=== PATIENT | male | born 1960 | race American Indian/Alaskan Native ===

== ENCOUNTER 2018-05-11 18:17 | Inpatient (IN) | payer MEDICAID, MEDICARE ==
[2018-05-11] MEDS ORDERED: ASPIRIN PO ONE (18:27)
[2018-05-11 20:18] LABS: Basophils # (Auto) 0.1 K/mm3 (0.0-0.1); Eosinophils # (Auto) 0.4 K/mm3 (0.0-0.4); Eosinophils % (Auto) 6.6 % (0.0-4.3); Hematocrit 42.9 % (35.5-45.6); Hemoglobin 14.6 gm/dl (11.8-15.2); Lymphocytes # (Auto) 0.9 K/mm3 (1.2-5.4); Lymphocytes % (Auto) 15.9 % (13.4-35.0); Mean Corpuscular HGB Conc 34 % (32-34); Mean Corpuscular Hemoglobin 34 pg (28-32); Mean Corpuscular Volume 100 fl (84-94); Monocytes # (Auto) 0.5 K/mm3 (0.0-0.8); Monocytes % (Auto) 9.1 % (0.0-7.3); Platelet Count 143 K/mm3 (140-440); Red Blood Count 4.28 M/mm3 (3.65-5.03)
[2018-05-11 20:28] LABS: BUN/Creatinine Ratio 10; Blood Urea Nitrogen 6 mg/dL (9-20); Calcium 9.2 mg/dL (8.4-10.2); Hemolysis Index 69
[2018-05-12] MEDS ORDERED: MORPHINE IV ONE (04:08)
[2018-05-12] MEDS ORDERED: DELTASONE PO ONE (04:08)
[2018-05-12] MEDS ORDERED: ZOFRAN IV ONE (04:08)
[2018-05-12] MEDS ORDERED: NACL 0.9% 1000 ML 1,000 ML IV ONE (04:08)
[2018-05-12] MEDS ORDERED: DUONEB *Not for PRN Use IH ONE (04:08)
[2018-05-12] MEDS ORDERED: LEVAQUIN PO ONE (04:10)
[2018-05-12] MEDS ORDERED: BABY ASPIRIN PO ONE (04:11)
--- NOTE | 2018-05-12 04:11 | Emergency Department Report ---
HPI - General Chief Complaint: Chest Pain Time Seen by Provider: 05/12/18 03:52 - HPI HPI: The patient is a 57-year-old gentleman with a history of sarcoidosis, who presents for evaluation of chest pain and dyspnea. The patient reports chest pain and shortness of breath for the past 12 hours. He states that his chest pain is bilateral, sharp in quality, exacerbated with deep breaths, currently 6/ 10 in severity. ED Past Medical Hx - Past Medical History Additional medical history: scarcodosis - Surgical History Additional Surgical History: left shoulder - Social History Smoking Status: Current Every Day Smoker Substance Use Type: Alcohol - Medications Home Medications: Home Medications Medication Instructions Recorded Confirmed Last Taken Type Budesonide/Formoterol Fumarate 1 puff PO DAILY 05/11/18 05/11/18 Unknown History [Symbicort 160-4.5 Mcg Inhaler] ED Review of Systems ROS: Stated complaint: CHEST PAINS Other details as noted in HPI Constitutional: denies: fever ENT: denies: throat or neck pain Respiratory: denies: cough reports shortness of breath Cardiovascular: reports: chest pain Endocrine: denies unexplained weight loss or gain Gastrointestinal: denies: abdominal pain, nausea Genitourinary: denies: dysuria Musculoskeletal: denies: leg swelling Skin: denies: rash Neurological: denies: headache Hematological/Lymphatic: denies: easy bleeding or easy bruising Psych: denies sadness or hopelessness Physical Exam - Physical Exam Vital Signs: Vital Signs 05/11/18 05/11/18 18:27 23:40 Temperature 98.9 F 99.0 F Pulse Rate 101 H 71 Respiratory 18 20 Rate Blood Pressure 153/75 Blood Pressure 170/90 [Left] O2 Sat by Pulse 97 99 Oximetry Physical Exam: General: well-nourished, well-developed, no acute distress Head: Normocephalic, atraumatic Eyes: normal sclera ENT: Mucous membranes are pink and moist Neck: trachea midline, neck supple, No neck stiffness, no cervical adenopathy Respiratory: Mildly diminished breath sounds and wheezing present throughout lung guerrero bilaterally Cardio: S1 and S2 present, no murmurs, rubs, gallops, capillary refill is brisk Abdomen: Normoactive bowel sounds, soft abdomen, no rigidity, no guarding or rebound tenderness Chest WALL/Back: No tenderness to palpation of the chest wall, no CVA tenderness with percussion Musc: No pitting edema Skin: No rash Neuro: no facial drooping, normal speech Psych: Normal affect ED Course Vital Signs 05/11/18 05/11/18 18:27 23:40 Temperature 98.9 F 99.0 F Pulse Rate 101 H 71 Respiratory 18 20 Rate Blood Pressure 153/75 Blood Pressure 170/90 [Left] O2 Sat by Pulse 97 99 Oximetry ED Medical Decision Making - Lab Data Result diagrams: 05/11/18 19:50 05/11/18 19:50 - Medical Decision Making The patient was seen and examined by myself. The patient is placed on a library monitor and continuous pulse ox. On initial evaluation, the patient was found to be in no distress. EKG was negative for findings suggestive of acute cardiac infarct. Labs and imaging are obtained. Chest x-rays of his bilateral infiltrates. The patient is given IV Levaquin for treatment of his suspected pneumonia. Lab results were non-concerning including levels of troponin, WBC, hemoglobin, hematocrit, electrolytes, renal function. The on-call hospitalist service was contacted. They agreed to admit the patient for further treatment and close monitoring. The ED admit order was placed. The patient was admitted in guarded condition. Critical care attestation.: If time is entered above; I have spent that time in minutes in the direct care of this critically ill patient, excluding procedure time. ED Disposition Clinical Impression: Acute chest pain Pneumonia Qualifiers: Pneumonia type: due to unspecified organism Laterality: bilateral Lung location : upper lobe of lung Qualified Code(s): J18.1 - Lobar pneumonia, unspecified organism Disposition: OP ADMIT IP TO THIS HOSP Is pt being admited?: Yes Does the pt Need Aspirin: Yes Condition: Stable Instructions: Chest Pain (ED), Bacterial Pneumonia (ED) Referrals: PRIMARY CARE, [Primary Care Provider] - 3-5 Days Time of Disposition: 04:09
--- NOTE | 2018-05-12 04:26 | XRay Report ---
FINAL REPORT EXAM: XR CHEST 1V AP HISTORY: chest pain TECHNIQUE: AP portable view(s) of the chest obtained. PRIORS: None. FINDINGS: No mediastinal shift. Cardiac silhouette is not enlarged. No area pattern of punctate nodularity throughout both lungs. More confluent patchy opacities are present in a perihilar distribution. Hyperaeration of the lungs. No pneumothorax, effusion, or focal pulmonary opacity identified. No acute skeletal findings. Left shoulder hardware and severe right shoulder osteoarthrosis. IMPRESSION: Patchy perihilar opacities may be due to infection. Correlation with any prior imaging is requested. Miliary pattern of punctate nodularity throughout both lungs may be chronic sequela of tuberculosis, varicella or fungal disease.
[2018-05-12] MEDS ORDERED: NACL 0.9% 1000 ML 1,000 ML ONE (05:02)
[2018-05-12] MEDS ORDERED: TYLENOL PO PRN (12:03)
[2018-05-12] MEDS ORDERED: SODIUM CHLORIDE FLUSH SYRINGE 10 ML IV PRN (12:03)
[2018-05-12] MEDS ORDERED: PERCOCET 5/325 PO PRN (12:03)
[2018-05-12 13:20] LABS: BUN/Creatinine Ratio 13; Blood Urea Nitrogen 8 mg/dL (9-20); Calcium 9.1 mg/dL (8.4-10.2); Hemolysis Index 7
[2018-05-12] MEDS: BROVANA NEBU IH SCH (20:09)
[2018-05-12] MEDS: PULMICORT IH SCH (20:09)
[2018-05-12] MEDS: SODIUM CHLORIDE FLUSH SYRINGE 10 ML IV SCH (22:21)
[2018-05-13 06:22] LABS: BUN/Creatinine Ratio 12; Blood Urea Nitrogen 7 mg/dL (9-20); Calcium 8.9 mg/dL (8.4-10.2); Hemolysis Index 6
[2018-05-13] MEDS: PULMICORT IH SCH ×2 (08:24→19:55)
[2018-05-13] MEDS: BROVANA NEBU IH SCH ×2 (08:25→19:55)
[2018-05-13] MEDS ORDERED: NON-FORMULARY (Budesonide/Formoterol Fumarate [Symbicort 160-4.5 Mcg Inhaler] 1 PUFF) PO SCH (10:00)
[2018-05-13] MEDS ORDERED: LEXISCAN IV ONE ×2 (11:45→11:48)
[2018-05-13] MEDS: LOVENOX SUB-Q SCH (13:00)
[2018-05-13] MEDS: SODIUM CHLORIDE FLUSH SYRINGE 10 ML IV SCH ×2 (13:53→21:23)
[2018-05-13] MEDS: ZOFRAN IV PRN (14:20)
--- NOTE | 2018-05-13 20:35 | XRay Report ---
FINAL REPORT EXAM: XR ABDOMEN 1V AP HISTORY: abdo pain and vomiting TECHNIQUE: Supine AP view of the abdomen. PRIORS: None. FINDINGS: The bowel gas pattern appears normal. There are diffuse prominent reticular nodular opacities in the bilateral visualized lung guerrero. Orthopedic screws are seen in the left acetabular area. Otherwise, the bones are unremarkable. IMPRESSION: Normal bowel gas pattern. Diffuse prominent reticulonodular opacities in the bilateral lung guerrero most likely represent pneumonia. See report for the chest x-ray performed on the same day.
[2018-05-13] MEDS: NACL 0.9% 1000 ML 1,000 ML IV SCH (21:23)
--- NOTE | 2018-05-13 23:40 | Progress Note ---
Assessment and Plan Assessment and plan: 57M with pmh of sarcoidosis, COPD, who pw CP on exertion x 1 day chest pain due to esophageal irritation from vomiting acs ruled out, serial trop neg stress test neg Sarcoidosis/copd follows at [facility] denies SOB or wheezing PNA started abx Tobacco abuse nicotine patch prn N/V now worse KUB negative GI consult History Interval history: co vomiting, unable to keep anything down, not even water -denies cp, wheezing or sob -cp is resolved -has had some productive cough, thick sputum Hospitalist Physical - Constitutional Vitals: Temp Pulse Resp BP Pulse Ox 98.7 F 71 20 120/62 98 05/13/18 19:43 05/13/18 20:05 05/13/18 20:05 05/13/18 19:43 05/13/18 19:43 General appearance: Present: no acute distress - EENT Eyes: Present: PERRL ENT: hearing intact - Neck Neck: Present: supple - Respiratory Respiratory effort: normal Respiratory: bilateral: rales (bases) - Cardiovascular Rhythm: regular Heart Sounds: Present: S1 & S2 - Extremities Extremities: no ischemia Peripheral Pulses: within normal limits - Abdominal General gastrointestinal: soft, non-tender - Integumentary Integumentary: Present: clear, warm - Psychiatric Psychiatric: appropriate mood/affect - Neurologic Neurologic: CNII-XII intact Results - Labs CBC & Chem 7: 05/11/18 19:50 05/13/18 05:02 Labs: Laboratory Last Values WBC 5.8 K/mm3 (4.5-11.0) 05/11/18 19:50 RBC 4.28 M/mm3 (3.65-5.03) 05/11/18 19:50 Hgb 14.6 gm/dl (11.8-15.2) 05/11/18 19:50 Hct 42.9 % (35.5-45.6) 05/11/18 19:50 MCV 100 fl (84-94) H 05/11/18 19:50 MCH 34 pg (28-32) H 05/11/18 19:50 MCHC 34 % (32-34) 05/11/18 19:50 RDW 15.0 % (13.2-15.2) 05/11/18 19:50 Plt Count 143 K/mm3 (140-440) 05/11/18 19:50 Lymph % (Auto) 15.9 % (13.4-35.0) 05/11/18 19:50 [place] % (Auto) 9.1 % (0.0-7.3) H 05/11/18 19:50 Eos % (Auto) 6.6 % (0.0-4.3) H 05/11/18 19:50 Baso % (Auto) 1.0 % (0.0-1.8) 05/11/18 19:50 Lymph # 0.9 K/mm3 (1.2-5.4) L 05/11/18 19:50 [place] # 0.5 K/mm3 (0.0-0.8) 05/11/18 19:50 Eos # 0.4 K/mm3 (0.0-0.4) 05/11/18 19:50 Baso # 0.1 K/mm3 (0.0-0.1) 05/11/18 19:50 Seg Neutrophils % 67.4 % (40.0-70.0) 05/11/18 19:50 Seg Neutrophils # 3.9 K/mm3 (1.8-7.7) 05/11/18 19:50 Sodium 132 mmol/L (137-145) L 05/13/18 05:02 Potassium 3.5 mmol/L (3.6-5.0) L D 05/13/18 05:02 Chloride 94.4 mmol/L (98-107) L 05/13/18 05:02 Carbon Dioxide 26 mmol/L (22-30) 05/13/18 05:02 Anion Gap 15 mmol/L 05/13/18 05:02 BUN 7 mg/dL (9-20) L 05/13/18 05:02 Creatinine 0.6 mg/dL (0.8-1.5) L 05/13/18 05:02 Estimated GFR > 60 ml/min 05/13/18 05:02 BUN/Creatinine Ratio 12 % 05/13/18 05:02 Glucose 103 mg/dL (75-100) H 05/13/18 05:02 Calcium 8.9 mg/dL (8.4-10.2) 05/13/18 05:02 Troponin T < 0.010 ng/mL (0.00-0.029) 05/12/18 00:55 NT-Pro-B Natriuret Pep 33.22 pg/mL (0-900) 05/12/18 00:55
--- NOTE | 2018-05-13 23:40 | History and Physical Report ---
History of Present Illness Date of admission: 05/13/18 14:45 Chief complaint: chest pain History of present illness: 57M c/o cp x1 day, CP began after he walked up the stairs, and since then he continues to have CP on exertion -cp in substernal, dull, feels tight, /10, no radiation, exacerbated by activity -admits to having vomiting even after he drank water -had multiple emesis, non bloody -no cough, has thick sputum production at baseline PMH; sarcoid, copd, PSh; left UE surgery Family Hx; father of [place] in his late 40s, Social hx; admits to current cigarette and cigar use, has been cutting back -his pcp gave him chantix -has hx of etoh and illicit drug abuse from many years ago. denies current use Medications and Allergies Allergies Allergy/AdvReac Type Severity Reaction Status Date / Time lactose AdvReac Unknown Verified 05/13/18 12:39 Home Medications Medication Instructions Recorded Confirmed Last Taken Type Budesonide/Formoterol Fumarate 1 puff PO DAILY 05/11/18 05/11/18 Unknown History [Symbicort 160-4.5 Mcg Inhaler] Active Meds: Active Medications Acetaminophen (Tylenol) 650 mg PO Q4H PRN PRN Reason: Pain MILD(1-3)/Fever >100.5/MILLER Arformoterol Tartrate (Brovana Nebu) 15 mcg IH Q12HRT [facility] Last Admin: 05/13/18 19:55 Dose: 15 mcg Budesonide (Pulmicort) 1 mg IH Q12HRT [facility] Last Admin: 05/13/18 19:55 Dose: 1 mg Enoxaparin Sodium (Lovenox) 40 mg SUB-Q QDAY [facility] Last Admin: 05/13/18 13:00 Dose: 40 mg Sodium Chloride (Nacl 0.9% 1000 Ml) 1,000 mls @ 125 mls/hr IV DIRECT [facility] Stop: 05/15/18 18:57 Last Admin: 05/13/18 21:23 Dose: 125 mls/hr Ondansetron HCl (Zofran) 4 mg IV Q8H PRN PRN Reason: Nausea And Vomiting Last Admin: 05/13/18 14:20 Dose: 4 mg Oxycodone/Acetaminophen (Percocet 5/325) 1 tab PO Q6H PRN PRN Reason: Pain, Moderate (4-6) Sodium Chloride (Sodium Chloride Flush Syringe 10 Ml) 10 ml IV BID [facility] Last Admin: 05/13/18 21:23 Dose: 10 ml Sodium Chloride (Sodium Chloride Flush Syringe 10 Ml) 10 ml IV PRN PRN PRN Reason: LINE FLUSH Review of Systems All systems: negative (10 point ROS is otherwise negative) Constitutional: no weight loss, no fever Ears, nose, mouth and throat: no ear pain Cardiovascular: chest pain Respiratory: no cough Gastrointestinal: nausea, vomiting Rectal: no pain Musculoskeletal: no neck stiffness Integumentary: no rash Neurological: no head injury Psychiatric: no anxiety Endocrine: no cold intolerance Hematologic/Lymphatic: no easy bruising Allergic/Immunologic: no urticaria Exam - Constitutional Vitals: Temp Pulse Resp BP Pulse Ox 98.7 F 71 20 120/62 98 05/13/18 19:43 05/13/18 20:05 05/13/18 20:05 05/13/18 19:43 05/13/18 19:43 General appearance: Present: no acute distress, well-nourished - EENT Eyes: Present: PERRL ENT: hearing intact, clear oral mucosa - Neck Neck: Present: supple, normal ROM - Respiratory Respiratory effort: normal Respiratory: bilateral: CTA - Cardiovascular Heart Sounds: Present: S1 & S2. Absent: rub, click - Extremities Extremities: pulses symmetrical, No edema Peripheral Pulses: within normal limits - Abdominal General gastrointestinal: Present: soft, non-tender, non-distended, normal bowel sounds Male genitourinary: Present: normal - Integumentary Integumentary: Present: clear, warm, dry - Musculoskeletal Musculoskeletal: gait normal, strength equal bilaterally - Psychiatric Psychiatric: appropriate mood/affect, intact judgment & insight - Neurologic Neurologic: CNII-XII intact, moves all extremities Results - Labs CBC & Chem 7: 05/11/18 19:50 05/13/18 05:02 Labs: Laboratory Last Values WBC 5.8 K/mm3 (4.5-11.0) 05/11/18 19:50 RBC 4.28 M/mm3 (3.65-5.03) 05/11/18 19:50 Hgb 14.6 gm/dl (11.8-15.2) 05/11/18 19:50 Hct 42.9 % (35.5-45.6) 05/11/18 19:50 MCV 100 fl (84-94) H 05/11/18 19:50 MCH 34 pg (28-32) H 05/11/18 19:50 MCHC 34 % (32-34) 05/11/18 19:50 RDW 15.0 % (13.2-15.2) 05/11/18 19:50 Plt Count 143 K/mm3 (140-440) 05/11/18 19:50 Lymph % (Auto) 15.9 % (13.4-35.0) 05/11/18 19:50 [place] % (Auto) 9.1 % (0.0-7.3) H 05/11/18 19:50 Eos % (Auto) 6.6 % (0.0-4.3) H 05/11/18 19:50 Baso % (Auto) 1.0 % (0.0-1.8) 05/11/18 19:50 Lymph # 0.9 K/mm3 (1.2-5.4) L 05/11/18 19:50 [place] # 0.5 K/mm3 (0.0-0.8) 05/11/18 19:50 Eos # 0.4 K/mm3 (0.0-0.4) 05/11/18 19:50 Baso # 0.1 K/mm3 (0.0-0.1) 05/11/18 19:50 Seg Neutrophils % 67.4 % (40.0-70.0) 05/11/18 19:50 Seg Neutrophils # 3.9 K/mm3 (1.8-7.7) 05/11/18 19:50 Sodium 132 mmol/L (137-145) L 05/13/18 05:02 Potassium 3.5 mmol/L (3.6-5.0) L D 05/13/18 05:02 Chloride 94.4 mmol/L (98-107) L 05/13/18 05:02 Carbon Dioxide 26 mmol/L (22-30) 05/13/18 05:02 Anion Gap 15 mmol/L 05/13/18 05:02 BUN 7 mg/dL (9-20) L 05/13/18 05:02 Creatinine 0.6 mg/dL (0.8-1.5) L 05/13/18 05:02 Estimated GFR > 60 ml/min 05/13/18 05:02 BUN/Creatinine Ratio 12 % 05/13/18 05:02 Glucose 103 mg/dL (75-100) H 05/13/18 05:02 Calcium 8.9 mg/dL (8.4-10.2) 05/13/18 05:02 Troponin T < 0.010 ng/mL (0.00-0.029) 05/12/18 00:55 NT-Pro-B Natriuret Pep 33.22 pg/mL (0-900) 05/12/18 00:55 Assessment and Plan Assessment and plan: 57M with pmh of sarcoidosis, COPD, who pw CP on exertion x 1 day chest pain acs ruled out, serial trop neg obtain stress test Sarcoidosis/copd follows at [facility] denies SOB or wheezing Tobacco abuse nicotine patch prn N/V says nausea is resolving
--- NOTE | 2018-05-14 04:59 | Treadmill Report ---
THALLIUM STRESS TEST LEFT VENTRICLE: Left ventricular chamber size is within normal spread. Perfusion study demonstrates homogeneous uptake of tracer in all segments, no significant perfusion defects identified. Gated analysis demonstrates normal left ventricular systolic function, ejection fraction of 59%. CONCLUSION: Normal myocardial perfusion study. JOB# [id number] CA/NTS
[2018-05-14] MEDS: NACL 0.9% 1000 ML 1,000 ML IV SCH ×2 (06:14→17:16)
[2018-05-14] MEDS: ZOFRAN IV PRN (08:55)
[2018-05-14] MEDS: PULMICORT IH SCH ×2 (09:18→19:16)
[2018-05-14] MEDS: BROVANA NEBU IH SCH ×2 (09:18→19:16)
[2018-05-14] MEDS: LEVAQUIN 750MG/150ML 750 MG/150 ML BAG IV SCH (10:34)
[2018-05-14] MEDS: SODIUM CHLORIDE FLUSH SYRINGE 10 ML IV SCH ×2 (10:35→21:20)
[2018-05-14] MEDS: HABITROL TD SCH (10:35)
[2018-05-14] MEDS: LOVENOX SUB-Q SCH (10:35)
--- NOTE | 2018-05-14 12:23 | Gastroenterology Consultation ---
<ANA LUISA HADDAD - Last Filed: 05/14/18 12:52> History of Present Illness - Reason for Consult Consult date: 05/14/18 intractable vomiting Requesting physician: SANDIE RAMIREZ - History of Present Illness Patient is a 57 y/o male with PMH of sarcoidosis and COPD who presented to ED with c/p CP on exertion and dyspnea. Upon admission, chest x-ray showed bilateral infiltrates due to possible pneumonia to which patient is currently being treated with antibiotics. CP was evaluated with ACS ruled out (cardiac enzymes and stress test negative). GI has been consulted for intractable vomiting. This morning patient was resting in bed w/o acute distress and CP improved. He reports having intermittent episodes of vomiting after meals for the past few months with associated periumbilical abd pain that is described as non-radiating cramping. Symptoms are worse with eating certain foods like dairy products, which also produces loose stools when consumed. Abd pain is improved after vomiting or having a BM. Nursing reports patient has been coughing/ spitting up mucus but no vomiting this am and he was able to tolerate a regular diet for breakfast w/o difficulty. Admits to mild recent wt loss due to current symptoms of approximately 3-5 lbs. Denies fever, SOB, dizziness, dysphagia, odynophagia, signs of bleeding, constipation, or diarrhea. No NSAID use. No hx of PUD or previous EGD. Last colonoscopy 3 years ago that revealed polyps per patient report. Past History Past Medical History: COPD, sarcoidosis Past Surgical History: Other (left UE surgery) Social history: smoking, other (hx of etoh and illicit drug abuse from many years ago (no current use)) Family history: CAD (father of [place] in his late 40s) Medications and Allergies Allergies Allergy/AdvReac Type Severity Reaction Status Date / Time lactose AdvReac Unknown Verified 05/13/18 12:39 Home Medications Medication Instructions Recorded Confirmed Last Taken Type Budesonide/Formoterol Fumarate 1 puff PO DAILY 05/11/18 05/11/18 Unknown History [Symbicort 160-4.5 Mcg Inhaler] Active Meds: Active Medications Acetaminophen (Tylenol) 650 mg PO Q4H PRN PRN Reason: Pain MILD(1-3)/Fever >100.5/MILLER Arformoterol Tartrate (Brovana Nebu) 15 mcg IH Q12HRT [facility] Last Admin: 05/14/18 09:18 Dose: 15 mcg Budesonide (Pulmicort) 1 mg IH Q12HRT [facility] Last Admin: 05/14/18 09:18 Dose: 1 mg Enoxaparin Sodium (Lovenox) 40 mg SUB-Q QDAY [facility] Last Admin: 05/14/18 10:35 Dose: 40 mg Sodium Chloride (Nacl 0.9% 1000 Ml) 1,000 mls @ 125 mls/hr IV DIRECT [facility] Stop: 05/15/18 18:57 Last Admin: 05/14/18 06:14 Dose: 125 mls/hr Levofloxacin/Dextrose (Levaquin 750mg/150ml) 750 mg in 150 mls @ 100 mls/hr IV Q24HR [facility]; Protocol Last Admin: 05/14/18 10:34 Dose: 100 mls/hr Nicotine (Habitrol) 7 mg TD QDAY [facility] Last Admin: 05/14/18 10:35 Dose: 7 mg Ondansetron HCl (Zofran) 4 mg IV Q8H PRN PRN Reason: Nausea And Vomiting Last Admin: 05/14/18 08:55 Dose: 4 mg Oxycodone/Acetaminophen (Percocet 5/325) 1 tab PO Q6H PRN PRN Reason: Pain, Moderate (4-6) Sodium Chloride (Sodium Chloride Flush Syringe 10 Ml) 10 ml IV BID [facility] Last Admin: 05/14/18 10:35 Dose: 10 ml Sodium Chloride (Sodium Chloride Flush Syringe 10 Ml) 10 ml IV PRN PRN PRN Reason: LINE FLUSH Review of Systems - Review of Systems All systems: negative Gastrointestinal: abdominal pain, nausea, vomiting Exam - Constitutional Vital Signs: Temp Pulse Resp BP Pulse Ox 98.6 F 77 16 132/79 99 05/14/18 08:15 05/14/18 08:15 05/14/18 08:15 05/14/18 08:15 05/14/18 08:15 General appearance: no acute distress, other (thin appearing) - Respiratory Respiratory: bilateral: CTA (anterior) - Cardiovascular Rhythm: regular Heart Sounds: Present: S1 & S2 - Gastrointestinal General gastrointestinal: Present: soft, non-tender, non-distended, normal bowel sounds - Neurologic Neurological: alert and oriented x3 - Labs CBC & Chem 7: 05/11/18 19:50 05/13/18 05:02 Assessment and Plan 1.intractable vomiting w/ atypical CP 2.abdominal pain (periumbilical pain/cramping) -afebrile -WBC WNL -abdominal x-ray negative -patient reports periumbilical pain after eating for the past few months with associated intermittent vomiting and occasional loose stools only after consuming dairy products -etiology unclear- possibly functional vs other -clinically, patient is stable with CP improved but c/o abd pain/cramping and some mild continued nausea but no recent vomiting. Tolerated diet this am. -will check LFTs and lipase in am -recommend an abd CT for further evaluation to r/o any acute process -start on daily PPI -consider EGD based on progress -continue supportive care -further recommendations to follow 3.sarcoidosis/COPD 4.PNA <SEAMUS WRIGHT - Last Filed: 05/14/18 23:23> Medications and Allergies Active Meds: Active Medications Acetaminophen (Tylenol) 650 mg PO Q4H PRN PRN Reason: Pain MILD(1-3)/Fever >100.5/MILLER Arformoterol Tartrate (Brovana Nebu) 15 mcg IH Q12HRT [facility] Last Admin: 05/14/18 19:16 Dose: 15 mcg Budesonide (Pulmicort) 1 mg IH Q12HRT [facility] Last Admin: 05/14/18 19:16 Dose: 1 mg Enoxaparin Sodium (Lovenox) 40 mg SUB-Q QDAY [facility] Last Admin: 05/14/18 10:35 Dose: 40 mg Sodium Chloride (Nacl 0.9% 1000 Ml) 1,000 mls @ 125 mls/hr IV DIRECT [facility] Stop: 05/15/18 18:57 Last Admin: 05/14/18 17:16 Dose: 125 mls/hr Levofloxacin/Dextrose (Levaquin 750mg/150ml) 750 mg in 150 mls @ 100 mls/hr IV Q24HR [facility]; Protocol Last Admin: 05/14/18 10:34 Dose: 100 mls/hr Nicotine (Habitrol) 7 mg TD QDAY [facility] Last Admin: 05/14/18 10:35 Dose: 7 mg Ondansetron HCl (Zofran) 4 mg IV Q8H PRN PRN Reason: Nausea And Vomiting Last Admin: 05/14/18 08:55 Dose: 4 mg Oxycodone/Acetaminophen (Percocet 5/325) 1 tab PO Q6H PRN PRN Reason: Pain, Moderate (4-6) Pantoprazole Sodium (Protonix) 40 mg IV BID [facility] Last Admin: 05/14/18 21:19 Dose: 40 mg Sodium Chloride (Sodium Chloride Flush Syringe 10 Ml) 10 ml IV BID [facility] Last Admin: 05/14/18 21:20 Dose: 10 ml Sodium Chloride (Sodium Chloride Flush Syringe 10 Ml) 10 ml IV PRN PRN PRN Reason: LINE FLUSH Exam - Constitutional Vital Signs: Temp Pulse Resp BP Pulse Ox 97.1 F L 81 17 138/80 100 05/14/18 20:09 05/14/18 20:09 05/14/18 20:48 05/14/18 20:09 05/14/18 20:09 - Labs CBC & Chem 7: 05/11/18 19:50 05/13/18 05:02 Assessment and Plan Pt seen and examined. Agree with note above. Difficult to obtain clear timing and details of GI symptoms. Some symptoms are chronic vs possibly some recent new changes in bowel habits, although difficult to say. CT scan as above, and check liver enzymes, lipase. diet as tolerated. egd if n/v persists without other obvious explanation.
[2018-05-14] MEDS: PROTONIX IV SCH ×2 (14:37→21:19)
--- NOTE | 2018-05-14 16:08 | Progress Note ---
Assessment and Plan Assessment and plan: Patient is a 57 yo man with a history of sarcoidosis and COPD who pw CP, SOB. Chest pain due to esophageal irritation from vomiting acs ruled out, serial trop neg stress test neg Sarcoidosis/copd follows at [place] denies SOB or wheezing PNA. suspected aspiration type bilateral started abx Tobacco abuse nicotine patch prn Intractable N/V now worse KUB negative GI consulted, CT abd/pelvis pending Moderate malnutrition, bmi 17.6 consult Reading Teacher, and GI History Interval history: Patient was seen and examined. Follow-up on current diagnosis of cp, resolved but still with n/v. Overnight uneventful. Patient denies any chest pain, shortness breath or severe headaches. Imaging, nursing note, chart, labs and old chart reviewed. Discussed with patient. Hospitalist Physical - Physical exam Narrative exam: GEN: thin frail, bmi 17.6, NAD, Awake, Alert, Orientated x 3 HEENT: NCAT, EOMI, PERRL, OP Clear NECK: supple, no adenopathy, no thyromegaly, no JVD CVS/HEART: RRR, normal S1S2, pulses present bilaterally CHEST/LUNGS: CTA B, Symmetrical chest expansion, good air entry bilaterally GI/Abdomen: soft, NTND, good bowel sounds, no guarding or rebound /Bladder: no suprapubic tenderness, no CVA or paraspinal tenderness EXT/Skin: no c/c/e, no obvious rash MSK: FROM x 4 Neuro: CN 2-12 grossly intact, no new focal deficits Psych: calm - Constitutional Vitals: Temp Pulse Resp BP Pulse Ox 98.6 F 74 18 134/80 98 05/14/18 13:04 05/14/18 13:04 05/14/18 13:04 05/14/18 13:04 05/14/18 13:04 General appearance: Present: no acute distress Results - Labs CBC & Chem 7: 05/11/18 19:50 05/13/18 05:02 Labs: Laboratory Last Values WBC 5.8 K/mm3 (4.5-11.0) 05/11/18 19:50 RBC 4.28 M/mm3 (3.65-5.03) 05/11/18 19:50 Hgb 14.6 gm/dl (11.8-15.2) 05/11/18 19:50 Hct 42.9 % (35.5-45.6) 05/11/18 19:50 MCV 100 fl (84-94) H 05/11/18 19:50 MCH 34 pg (28-32) H 05/11/18 19:50 MCHC 34 % (32-34) 05/11/18 19:50 RDW 15.0 % (13.2-15.2) 05/11/18 19:50 Plt Count 143 K/mm3 (140-440) 05/11/18 19:50 Lymph % (Auto) 15.9 % (13.4-35.0) 05/11/18 19:50 [place] % (Auto) 9.1 % (0.0-7.3) H 05/11/18 19:50 Eos % (Auto) 6.6 % (0.0-4.3) H 05/11/18 19:50 Baso % (Auto) 1.0 % (0.0-1.8) 05/11/18 19:50 Lymph # 0.9 K/mm3 (1.2-5.4) L 05/11/18 19:50 [place] # 0.5 K/mm3 (0.0-0.8) 05/11/18 19:50 Eos # 0.4 K/mm3 (0.0-0.4) 05/11/18 19:50 Baso # 0.1 K/mm3 (0.0-0.1) 05/11/18 19:50 Seg Neutrophils % 67.4 % (40.0-70.0) 05/11/18 19:50 Seg Neutrophils # 3.9 K/mm3 (1.8-7.7) 05/11/18 19:50 Sodium 132 mmol/L (137-145) L 05/13/18 05:02 Potassium 3.5 mmol/L (3.6-5.0) L D 05/13/18 05:02 Chloride 94.4 mmol/L (98-107) L 05/13/18 05:02 Carbon Dioxide 26 mmol/L (22-30) 05/13/18 05:02 Anion Gap 15 mmol/L 05/13/18 05:02 BUN 7 mg/dL (9-20) L 05/13/18 05:02 Creatinine 0.6 mg/dL (0.8-1.5) L 05/13/18 05:02 Estimated GFR > 60 ml/min 05/13/18 05:02 BUN/Creatinine Ratio 12 % 05/13/18 05:02 Glucose 103 mg/dL (75-100) H 05/13/18 05:02 Calcium 8.9 mg/dL (8.4-10.2) 05/13/18 05:02 Troponin T < 0.010 ng/mL (0.00-0.029) 05/12/18 00:55 NT-Pro-B Natriuret Pep 33.22 pg/mL (0-900) 05/12/18 00:55
[2018-05-14] MEDS ORDERED: K-DUR PO ONE (17:00)
[2018-05-15 05:47] LABS: Basophils % (Auto) 0.6 % (0.0-1.8); Eosinophils # (Auto) 0.8 K/mm3 (0.0-0.4); Eosinophils % (Auto) 14.3 % (0.0-4.3); Hematocrit 34.3 % (35.5-45.6); Hemoglobin 11.6 gm/dl (11.8-15.2); Lymphocytes # (Auto) 0.9 K/mm3 (1.2-5.4); Lymphocytes % (Auto) 15.1 % (13.4-35.0); Mean Corpuscular HGB Conc 34 % (32-34); Mean Corpuscular Hemoglobin 34 pg (28-32); Mean Corpuscular Volume 101 fl (84-94); Monocytes # (Auto) 0.8 K/mm3 (0.0-0.8); Monocytes % (Auto) 13.6 % (0.0-7.3); Red Blood Count 3.39 M/mm3 (3.65-5.03); Red Cell Distribution Width 14.5 % (13.2-15.2)
[2018-05-15 05:50] LABS: Platelet Count 87 K/mm3 (140-440)
[2018-05-15 06:10] LABS: BUN/Creatinine Ratio 8; Blood Urea Nitrogen 5 mg/dL (9-20); Calcium 8.9 mg/dL (8.4-10.2); Hemolysis Index 4
[2018-05-15 06:24] LABS: Alanine Aminotransferase 13 units/L (7-56); Albumin 3.7 g/dL (3.9-5); BUN/Creatinine Ratio 8; Blood Urea Nitrogen 5 mg/dL (9-20); Hemolysis Index 1; Lipase 49 units/L (13-60)
[2018-05-15] MEDS: NACL 0.9% 1000 ML 1,000 ML IV SCH (07:33)
[2018-05-15] MEDS: PULMICORT IH SCH (07:49)
[2018-05-15] MEDS: BROVANA NEBU IH SCH (07:50)
[2018-05-15] MEDS ORDERED: NACL 0.9% 50 ML ONE (08:21)
--- NOTE | 2018-05-15 10:43 | Cat Scan Report ---
CT ABDOMEN PELVIS WITH CONTRAST: HISTORY: Abdominal pain, intractable vomiting. COMPARISON: none. TECHNIQUE: Helical CT in 1.25mm intervals following IV contrast. Sagittal and coronal reconstructions. FINDINGS: Lung bases: The trace bilateral pleural effusions. There are innumerable tiny nodules throughout the lung bases measuring 1-3 mm. Although this could be infectious in nature a metastatic process is not excluded. This resembles a miliary pattern. Liver: Normal. Biliary system: Normal. Pancreas: Normal. Spleen: Normal. Kidneys/ureters/bladder: Normal. Adrenal glands: Normal. Aorta: Normal. Intestines: No evidence for bowel obstruction or focal inflammation. No oral contrast was administered which limits full evaluation of the GI tract. Appendix: Normal. Pelvic viscera: Normal. Ascites: None. Adenopathy: None. Musculoskeletal: Scoliosis and lumbar spondylosis are noted. No fracture or suspicious bony lesion is identified. IMPRESSION: Numerous tiny nodules at the lung bases resembling a miliary pattern. This could represent metastatic disease or infectious etiology such as tuberculosis. Please correlate with the patient's history. Trace bilateral pleural effusions. No acute inflammatory process is identified in the abdomen or pelvis.
[2018-05-15] MEDS: LEVAQUIN 750MG/150ML 750 MG/150 ML BAG IV SCH (10:45)
[2018-05-15] MEDS: HABITROL TD SCH (10:45)
[2018-05-15] MEDS: LOVENOX SUB-Q SCH (10:46)
[2018-05-15] MEDS: PROTONIX IV SCH (10:46)
[2018-05-15 12:18] VITALS: BP 119/68
--- NOTE | 2018-05-15 14:10 | Gastroenterology Progress Note ---
Assessment and Plan 1.intractable vomiting/atypical CP 2.abdominal pain (periumbilical pain/cramping) -afebrile -WBC WNL -LFTs and lipase WNL -abdominal x-ray negative -CT showed numerous tiny nodules a the lung bases and trace bilateral pleural effusions but no acute inflammatory process in the abdomen or plevis -patient reports multiple vague intermittent GI complaints that have been mostly chronic vs possibly some recent new changes (difficult to obtain clear timing and details of GI symptoms) to include some periumbilical pain/cramping, N/V, and loose stools only after consuming dairy products -etiology unclear- possibly functional vs other -clinically, patient reports feeling better today with abd pain and N/V now resolved. No CP. Tolerating diet. -continue PPI and supportive care -patient okay to be d/c per GI standpoint with outpatient follow up in clinic -will sign off, please call if needed 3.sarcoidosis/COPD 4.PNA Subjective Date of service: 05/15/18 Principal diagnosis: intractable vomiting Interval history: Patient Objective - Constitutional Vitals: Temp Pulse Resp BP Pulse Ox 98.2 F 74 20 119/68 99 05/15/18 12:17 05/15/18 12:17 05/15/18 12:17 05/15/18 12:17 05/15/18 12:17 - Labs CBC & Chem 7: 05/15/18 05:09 05/15/18 05:09 Labs: Laboratory Results - last 24 hr 05/15/18 05/15/18 05/15/18 05:09 05:09 05:09 WBC 5.7 RBC 3.39 L Hgb 11.6 L Hct 34.3 L MCV 101 H MCH 34 H MCHC 34 RDW 14.5 Plt Count 87 L Lymph % (Auto) 15.1 [place] % (Auto) 13.6 H Eos % (Auto) 14.3 H Baso % (Auto) 0.6 Lymph # 0.9 L [place] # 0.8 Eos # 0.8 H Baso # 0.0 Seg Neutrophils % 56.4 Seg Neutrophils # 3.2 Sodium 140 D 137 Potassium 4.3 D 4.1 Chloride 106.3 103.3 Carbon Dioxide 25 24 Anion Gap 13 14 BUN 5 L 5 L Creatinine 0.6 L 0.6 L Estimated GFR > 60 > 60 BUN/Creatinine Ratio 8 8 Glucose 91 89 Calcium 9.0 8.9 Magnesium 1.90 Total Bilirubin 1.20 AST 21 ALT 13 Alkaline Phosphatase 68 Total Protein 7.1 Albumin 3.7 L Albumin/Globulin Ratio 1.1 Lipase 49
--- NOTE | 2018-05-15 14:18 | Discharge Summary ---
Providers - Providers Date of Admission: 05/13/18 14:45 Date of discharge: 05/15/18 Attending physician: MARIA DOLORES BENSON 05/13/18 16:40 Consult to Physician [CONS] Routine Comment: Consulting Provider: TALI CLEARY Physician Instructions: Reason For Exam: intractable vomiting 05/15/18 09:21 Consult to Dietitian/Nutrition [CONS] Routine Physician Instructions: Reason For Exam: Reason for Consult: Malnutrition Primary care physician: PROOFER BLACK AND WHITE Hospitalization Condition: Stable Hospital course: Patient is a 57 yo man with a history of sarcoidosis and COPD who pw CP, SOB. Chest pain due to GERD acs ruled out, serial trop neg stress test neg Sarcoidosis/copd follows at [facility], ct showing milliary patten, chronic which could be Tb, no comparison imaging, first visit here, d/w Dr. Velazquez briefly about the finding but not the patient. He recommends outpatient followup denies SOB or wheezing PNA. suspected aspiration type bilateral started abx Tobacco abuse nicotine patch prn Intractable N/V now worse KUB negative GI consulted, CT abd/pelvis pending Moderate malnutrition, bmi 17.6 consult Police Superintendent, and GI Disposition: DC-01 TO HOME OR SELFCARE Time spent for discharge: 31 min Core Measure Documentation - Palliative Care Palliative Care/ Comfort Measures: Not Applicable - Core Measures Any of the following diagnoses?: none - VTE Discharge Requirements Deep Vein Thrombosis/Pulmonary Embolism Present on Admission: No Has pt received <5 days of overlap therapy or INR<2.0: No Anticoagulant overlap therapy prescribed at discharge: No Contraindication No Overlap Therapy order at DC: Not Indicated Exam - Physical Exam Narrative exam: GEN: thin frail, bmi 17.6, NAD, Awake, Alert, Orientated x 3 HEENT: NCAT, EOMI, PERRL, OP Clear NECK: supple, no adenopathy, no thyromegaly, no JVD CVS/HEART: RRR, normal S1S2, pulses present bilaterally CHEST/LUNGS: CTA B, Symmetrical chest expansion, good air entry bilaterally GI/Abdomen: soft, NTND, good bowel sounds, no guarding or rebound /Bladder: no suprapubic tenderness, no CVA or paraspinal tenderness EXT/Skin: no c/c/e, no obvious rash MSK: FROM x 4 Neuro: CN 2-12 grossly intact, no new focal deficits Psych: calm - Constitutional Vitals: Temp Pulse Resp BP Pulse Ox 98.2 F 74 20 119/68 99 05/15/18 12:17 05/15/18 12:17 05/15/18 12:17 05/15/18 12:17 05/15/18 12:17 Plan Activity: other (no strenous activity until cleared pcp) Diet: advance as tolerated Special Instructions: smoking cessation Follow up with: AAKASH CHIANG MD [Staff Physician] - 7 Days PAUL WHITFIELD [Staff Physician] - 7 Days Prescriptions: ALBUTEROL Inhaler(NF) [VENTOLIN Inhaler(NF)] 2 puff IH Q4H PRN #1 unit PRN Reason: Shortness Of Breath Budesonide/Formoterol Fumarate [Symbicort 160-4.5 Mcg Inhaler] 1 puff PO DAILY # 1 hfa.aer.ad levoFLOXacin [Levaquin] 750 mg PO QDAY #5 tablet Nicotine [Habitrol] 7 mg TD QDAY #14 patch Pantoprazole [Protonix] 40 mg PO QDAY #30 tablet
== END 2018-05-15 15:56 | disposition home or self-care (01) | DRG 178 ==
LOC: ED 18:17 → 4A 05-12 12:03 → OBSVTOIN 05-13 14:45
PROVIDERS: ADMIT Internal Medicine; ATTEND Internal Medicine
DX: J69.0 Pneumonitis due to inhalation of food and vomit (principal); E44.0 Moderate protein-calorie malnutrition; Z68.1 Body mass index [BMI] 19.9 or less, adult; J44.0 Chronic obstructive pulmonary disease with (acute) lower respiratory infection; D86.9 Sarcoidosis, unspecified; K21.9 Gastro-esophageal reflux disease without esophagitis; E87.6 Hypokalemia; F17.210 Nicotine dependence, cigarettes, uncomplicated; Z82.49 Family history of ischemic heart disease and other diseases of the circulatory system; Z79.899 Other long term (current) drug therapy; Z72.89 Other problems related to lifestyle
CPT/HCPCS: 36415; 71045; 74018; 74177; 78452; 80048; 80053; 83690; 83735; 83880; 84484; 85025; 93005; 93010; 93017; 93306; 94640; A9502; C9113; G0378; J1650; J1956; J2270; J2405; J2785; J7030; J7512; Q9967

== ENCOUNTER 2020-02-06 11:02 | Inpatient (IN) | payer MEDICARE ==
[2020-02-06] MEDS ORDERED: LORazepam 2 MG/ML VIAL IV ONE (12:34)
[2020-02-06] MEDS ORDERED: LORazepam 2 MG/ML VIAL ONE (12:34)
[2020-02-06 12:54] LABS: Basophils # (Auto) 0.1 K/mm3 (0.0-0.1); Basophils % (Auto) 1.3 % (0.0-1.8); Eosinophils # (Auto) 0.2 K/mm3 (0.0-0.4); Eosinophils % (Auto) 2.6 % (0.0-4.3); Hematocrit 32.4 % (35.5-45.6); Hemoglobin 10.5 gm/dl (11.8-15.2); Lymphocytes # (Auto) 1.8 K/mm3 (1.2-5.4); Mean Corpuscular HGB Conc 32 % (32-34); Monocytes # (Auto) 0.7 K/mm3 (0.0-0.8); Monocytes % (Auto) 10.6 % (0.0-7.3); Red Blood Count 2.94 M/mm3 (3.65-5.03); Red Cell Distribution Width 14.4 % (13.2-15.2)
[2020-02-06 13:08] LABS: INR 1.07 (0.87-1.13); Mean Corpuscular Volume 110 fl (84-94)
[2020-02-06 13:12] LABS: Alanine Aminotransferase 80 units/L (7-56); Albumin 3.4 g/dL (3.9-5); BUN/Creatinine Ratio 8; Bilirubin,Direct 1.8 mg/dL (0-0.2); Blood Urea Nitrogen 7 mg/dL (9-20); Hemolysis Index 5
[2020-02-06 13:13] LABS: Creatine Kinase MB < 1.0 ng/mL (0.0-4.0)
--- NOTE | 2020-02-06 13:14 | Cat Scan Report ---
CT head/brain wo con INDICATION: Dizziness, vertigo, weakness. TECHNIQUE: Routine CT head without contrast. All CT scans at this location are performed using CT dos e reduction for ALARA by means of automated exposure control. COMPARISON: None. FINDINGS: BRAIN / INTRACRANIAL CONTENTS: No acute hemorrhage, mass effect, midline shift, or hydrocephalus. No appreciable acute large territorial or lacunar infarct. No chronic infarct or focal atrophy. Normal b rain volume and ventricular/sulcal size for age. ORBITS: No significant abnormality of visualized orbits. SINUSES / MASTOIDS: No significant abnormality of visualized sinuses and mastoid air cells. ADDITIONAL FINDINGS: None. IMPRESSION: 1. No acute intracranial abnormality. Signer Name: Elmer Izaguirre MD Signed: 02/06/2020 1:10 PM Workstation Name: [id number]
[2020-02-06] MEDS: THIAMINE 100 MG, FOLIC ACID 1 MG, MULTIPLE VITAMIN INJ, ADULT 10 ML in SODIUM CHLORIDE ... IV ONE ×2 (13:34→13:35)
[2020-02-06 13:44] LABS: Partial Thromboplastin Time TNR Sec. (24.2-36.6)
--- NOTE | 2020-02-06 13:50 | Emergency Department Report ---
ED General Adult HPI - General Chief complaint: Dizziness Stated complaint: DIZZY Time Seen by Provider: 02/06/20 12:33 Source: patient Mode of arrival: Wheelchair Limitations: No Limitations - History of Present Illness Initial comments: This is a 59-year old man who states that on Saturday he felt weak and dizzy while he was on line but did not pass out. Paramedics were summoned to the scene. He states that his vital signs were normal and he decided not to go to the hospital. He stopped drinking on Saturday. He states that he does get shaky when he stops drinking and that he does consume significant amounts of daily alcohol. Since Saturday he has had persistent weakness and dizziness. He has been shaky. He does not report any syncopal episode. He denies any head trauma. He denies fever or chills. -: days(s) Severity scale (0 -10): 0 Associated Symptoms: denies other symptoms Treatments Prior to Arrival: none - Related Data Previous Rx's Medication Instructions Recorded Last Taken Type ALBUTEROL Inhaler(NF) [VENTOLIN 2 puff IH Q4H PRN #1 unit 05/15/18 Unknown Rx Inhaler(NF)] Acetaminophen [Acetaminophen TAB] 650 mg PO Q4H PRN #30 tablet 05/15/18 Unknown Rx Budesonide/Formoterol Fumarate 1 puff PO DAILY #1 hfa.aer.ad 05/15/18 Unknown Rx [Symbicort 160-4.5 Mcg Inhaler] Nicotine [Habitrol] 7 mg TD QDAY #14 patch 05/15/18 Unknown Rx levoFLOXacin [Levaquin] 750 mg PO QDAY #5 tablet 05/15/18 Unknown Rx HYDROcodone/APAP 5-325 [[place] 1 each PO Q6HR PRN #10 tablet 06/20/18 Unknown Rx 5/325] Ondansetron [Zofran Odt] 4 mg PO Q8H PRN #10 tab.rapdis 06/20/18 Unknown Rx Pantoprazole [Protonix TAB] 40 mg PO QDAY #30 tablet 06/20/18 Unknown Rx Allergies Allergy/AdvReac Type Severity Reaction Status Date / Time lactose AdvReac Unknown Verified 05/13/18 12:39 ED Review of Systems ROS: Stated complaint: DIZZY Other details as noted in HPI Constitutional: weakness. denies: chills, fever Eyes: denies: eye pain, eye discharge, vision change ENT: denies: ear pain, throat pain Respiratory: SOB with exertion (Chronic dyspnea on exertion unchanged). denies: cough, shortness of breath, wheezing Cardiovascular: denies: chest pain, palpitations Endocrine: no symptoms reported Gastrointestinal: denies: abdominal pain, nausea, diarrhea Genitourinary: denies: urgency, dysuria Musculoskeletal: denies: back pain, joint swelling, arthralgia Skin: denies: rash, lesions Neurological: other (Dizziness). denies: headache, weakness, numbness, paresthesias, confusion, vertigo Psychiatric: denies: anxiety, depression Hematological/Lymphatic: denies: easy bleeding, easy bruising ED Past Medical Hx - Past Medical History Previous Medical History?: Yes Hx Hypertension: Yes Additional medical history: sarcodosis - Surgical History Past Surgical History?: Yes Additional Surgical History: left shoulder replacement. left knee replacement. bone fusion left wrist - Social History Smoking Status: Current Every Day Smoker Substance Use Type: Alcohol - Medications Home Medications: Home Medications Medication Instructions Recorded Confirmed Last Taken Type ALBUTEROL Inhaler(NF) [VENTOLIN 2 puff IH Q4H PRN #1 unit 05/15/18 Unknown Rx Inhaler(NF)] Acetaminophen [Acetaminophen TAB] 650 mg PO Q4H PRN #30 tablet 05/15/18 Unknown Rx Budesonide/Formoterol Fumarate 1 puff PO DAILY #1 hfa.aer.ad 05/15/18 Unknown Rx [Symbicort 160-4.5 Mcg Inhaler] Nicotine [Habitrol] 7 mg TD QDAY #14 patch 05/15/18 Unknown Rx levoFLOXacin [Levaquin] 750 mg PO QDAY #5 tablet 05/15/18 Unknown Rx HYDROcodone/APAP 5-325 [[place] 1 each PO Q6HR PRN #10 tablet 06/20/18 Unknown Rx 5/325] Ondansetron [Zofran Odt] 4 mg PO Q8H PRN #10 tab.rapdis 06/20/18 Unknown Rx Pantoprazole [Protonix TAB] 40 mg PO QDAY #30 tablet 06/20/18 Unknown Rx ED Physical Exam - General Limitations: No Limitations General appearance: alert, in no apparent distress - Head Head exam: Present: atraumatic, normocephalic - Eye Eye exam: Present: normal appearance, PERRL, EOMI. Absent: scleral icterus - ENT ENT exam: Present: normal exam, mucous membranes moist - Neck Neck exam: Present: normal inspection. Absent: tenderness, meningismus - Respiratory Respiratory exam: Present: normal lung sounds bilaterally. Absent: respiratory distress - Cardiovascular Cardiovascular Exam: Present: regular rate, normal rhythm. Absent: systolic murmur, diastolic murmur, rubs, gallop - GI/Abdominal GI/Abdominal exam: Present: soft, normal bowel sounds. Absent: distended, tenderness, guarding, rebound, rigid - Rectal Rectal exam: Present: deferred - Extremities Exam Extremities exam: Present: normal inspection - Back Exam Back exam: Present: normal inspection - Neurological Exam Neurological exam: Present: alert, oriented X3, CN II-XII intact. Absent: motor sensory deficit - Psychiatric Psychiatric exam: Present: normal affect, normal mood, other (Somewhat tremulous) - Skin Skin exam: Present: warm, dry, intact, normal color. Absent: rash ED Course Vital Signs 02/06/20 12:15 Temperature 97.8 F Pulse Rate 110 H Respiratory 26 H Rate Blood Pressure 125/81 [Left] O2 Sat by Pulse 100 Oximetry - Reevaluation(s) Reevaluation #1: Patient given Ativan, normal saline, banana bag. He was found to have a metabolic acidosis with a lactic acid level of 2.7. Further work-up was ordered. He was referred to Dr. Moreira of the hospitalist service for further care and evaluation. 02/06/20 14:49 ED Medical Decision Making - Lab Data Result diagrams: 02/06/20 12:35 02/06/20 12:35 Laboratory Results - last 24 hr 02/06/20 02/06/20 02/06/20 12:35 12:35 12:35 WBC 6.9 RBC 2.94 L Hgb 10.5 L Hct 32.4 L MCV 110 H MCH 36 H MCHC 32 RDW 14.4 Lymph % (Auto) 26.0 [place] % (Auto) 10.6 H Eos % (Auto) 2.6 Baso % (Auto) 1.3 Lymph # 1.8 [place] # 0.7 Eos # 0.2 Baso # 0.1 Seg Neutrophils % 59.5 Seg Neutrophils # 4.1 PT INR APTT Sodium 134 L Potassium 3.5 L Chloride 92.4 L Carbon Dioxide 15 L Anion Gap 30 BUN 7 L Creatinine 0.9 Estimated GFR > 60 BUN/Creatinine Ratio 8 Glucose 164 H Calcium 9.0 Magnesium 1.70 Total Bilirubin 4.10 H Direct Bilirubin 1.8 H Indirect Bilirubin 2.3 AST 103 H ALT 80 H Alkaline Phosphatase 412 H Total Creatine Kinase CK-MB (CK-2) CK-MB (CK-2) Rel Index Troponin T Total Protein 8.0 Albumin 3.4 L Albumin/Globulin Ratio 0.7 Plasma/Serum Alcohol < 0.01 02/06/20 02/06/20 12:35 12:35 WBC RBC Hgb Hct MCV MCH MCHC RDW Lymph % (Auto) [place] % (Auto) Eos % (Auto) Baso % (Auto) Lymph # [place] # Eos # Baso # Seg Neutrophils % Seg Neutrophils # PT 13.7 INR 1.07 APTT TNR Sodium Potassium Chloride Carbon Dioxide Anion Gap BUN Creatinine Estimated GFR BUN/Creatinine Ratio Glucose Calcium Magnesium Total Bilirubin Direct Bilirubin Indirect Bilirubin AST ALT Alkaline Phosphatase Total Creatine Kinase 102 CK-MB (CK-2) < 1.0 CK-MB (CK-2) Rel Index 0.9 Troponin T < 0.010 Total Protein Albumin Albumin/Globulin Ratio Plasma/Serum Alcohol - EKG Data -: EKG Interpreted by Id EKG shows normal: sinus rhythm - EKG Data Interpretation: nonspecific ST-T wave martha Occasional to moderately frequent PVCs 02/06/20 14:50 - Radiology Data Radiology results: report reviewed (No acute or chronic intracranial abnormality) Critical care attestation.: If time is entered above; I have spent that time in minutes in the direct care of this critically ill patient, excluding procedure time. ED Disposition Clinical Impression: Metabolic acidosis, Elevated lactic acid level Alcohol withdrawal Qualifiers: Complication of substance-induced condition: with unspecified complication Qualified Code(s): F10.239 - Alcohol dependence with withdrawal, unspecified Hepatic failure Qualifiers: Liver failure chronicity: unspecified chronicity Hepatic coma status: without hepatic coma Qualified Code(s): K72.90 - Hepatic failure, unspecified without coma Disposition: OP ADMIT IP TO THIS HOSP Is pt being admited?: Yes Does the pt Need Aspirin: No Condition: Stable Time of Disposition: 14:52
[2020-02-06] MEDS ORDERED: SODIUM CHLORIDE 0.9% 1000 ML 1,000 ML IV ONE (14:02)
[2020-02-06] MEDS ORDERED: SODIUM CHLORIDE 0.9% 1000 ML 1,000 ML ONE (14:04)
--- NOTE | 2020-02-06 14:23 | XRay Report ---
CHEST 1 VIEW INDICATION / CLINICAL INFORMATION: Exertional dyspnea history of sarcoid. COMPARISON: None available. FINDINGS: SUPPORT DEVICES: None. HEART / MEDIASTINUM: No significant abnormality. LUNGS / PLEURA: There is bilateral diffuse interstitial disease. This has more of a reticular pattern on today's study and was distinctly nodular the prior exam. This may represent changing pattern of c hronic interstitial lung disease. Possibility that this is related to an atypical infection is consid ered. No pneumothorax. There is blunting of the right costophrenic angle characteristic of small amount pleural fluid or ple ural thickening. ADDITIONAL FINDINGS: No significant additional findings. IMPRESSION: There is diffuse bilateral interstitial change. Position some improvement from the prior study and ap pears more reticular on today's exam whereas previously this was nodular. This could represent changi ng pattern of edema. This could represent an atypical infection. Signer Name: Laron Reza MD Signed: 02/06/2020 2:19 PM Workstation Name: [id number]
[2020-02-06 14:37] LABS: Platelet Count 92 K/mm3 (140-440)
[2020-02-06] MEDS ORDERED: PANTOPRAZOLE 40 MG INJ IV ONE (14:51)
[2020-02-06 18:14] LABS: Bilirubin,Urine NEG (Negative); Blood,Urine NEG (Negative); Color,Urine Yellow (Yellow); Mucus,Urine FEW /HPF; Protein,Urine <15 mg/dL mg/dL (Negative); RBC,Urine < 1.0 /HPF (0.0-6.0); WBC,Urine < 1.0 /HPF (0.0-6.0)
[2020-02-06 18:21] LABS: Amphetamine Screen,Urine PRESUMPTIVE NEGATIVE; Benzodiazepines Screen,Urine PRESUMPTIVE NEGATIVE; Cannabinoid Screen,Urine PRESUMPTIVE NEGATIVE; Cocaine Screen,Urine PRESUMPTIVE NEGATIVE; Methadone Screen,Urine PRESUMPTIVE NEGATIVE; Opiate Screen,Urine PRESUMPTIVE NEGATIVE
--- NOTE | 2020-02-06 22:55 | History and Physical Report ---
History of Present Illness Date of examination: 02/06/20 Date of admission: 02/06/20 14:53 Chief complaint: Tremulous for 2 days History of present illness: 59-year-old male with history of COPD and GERD comes in for feeling weak and dizzy. He felt that he was going to pass out. But did not pass out. EMS was called. He declined to come to the hospital. He stopped drinking 5 days ago. He drinks about 324 ounce bottles of beer every day for the last many years. Has been tremulous and shaky since last 3 days. Also has persistent weakness and dizziness. No syncope. No chest pain. Wants help with alcohol abuse and dependence. No fever. No exposure to coronavirus. - Past Medical History Previous Medical History?: Yes Hypertension: Yes Additional medical history: sarcodosis COPD GERD - Surgical History Past Surgical History?: Yes Additional Surgical History: left shoulder replacement. left knee replacement. bone fusion left wrist - Social History Smoking Status: Current Every Day Smoker Substance Use Type: Alcohol--3 24 ounce bottles of beer every day 25 days ago Family history Htn - Medications Home Medications: Home Medications Medication Instructions Recorded Confirmed Last Taken Type ALBUTEROL Inhaler(NF) [VENTOLIN 2 puff IH Q4H PRN #1 unit 05/15/18 Unknown Rx Inhaler(NF)] Acetaminophen [Acetaminophen TAB] 650 mg PO Q4H PRN #30 tablet 05/15/18 Unknown Rx Budesonide/Formoterol Fumarate 1 puff PO DAILY #1 hfa.aer.ad 05/15/18 Unknown Rx [Symbicort 160-4.5 Mcg Inhaler] Nicotine [Habitrol] 7 mg TD QDAY #14 patch 05/15/18 Unknown Rx levoFLOXacin [Levaquin] 750 mg PO QDAY #5 tablet 05/15/18 Unknown Rx HYDROcodone/APAP 5-325 [[place] 1 each PO Q6HR PRN #10 tablet 06/20/18 Unknown Rx 5/325] Ondansetron [Zofran Odt] 4 mg PO Q8H PRN #10 tab.rapdis 06/20/18 Unknown Rx Pantoprazole [Protonix TAB] 40 mg PO QDAY #30 tablet 06/20/18 Unknown Rx Review of Systems ROS: Stated complaint: DIZZY Other details as noted in HPI Constitutional: weakness. denies: chills, fever Eyes: denies: eye pain, eye discharge, vision change ENT: denies: ear pain, throat pain Respiratory: SOB with exertion (Chronic dyspnea on exertion unchanged). denies: cough, shortness of breath, wheezing Cardiovascular: denies: chest pain, palpitations Endocrine: no symptoms reported Gastrointestinal: denies: abdominal pain, nausea, diarrhea Genitourinary: denies: urgency, dysuria Musculoskeletal: denies: back pain, joint swelling, arthralgia Skin: denies: rash, lesions Neurological: other (Dizziness). denies: headache, weakness, numbness, paresthesias, confusion, vertigo Psychiatric: denies: anxiety, depression Hematological/Lymphatic: denies: easy bleeding, easy bruising Medications and Allergies Allergies Allergy/AdvReac Type Severity Reaction Status Date / Time lactose AdvReac Unknown Verified 05/13/18 12:39 Home Medications Medication Instructions Recorded Confirmed Last Taken Type Budesonide/Formoterol Fumarate 1 puff PO DAILY #1 hfa.aer.ad 05/15/18 02/06/20 Unknown Rx [Symbicort 160-4.5 Mcg Inhaler] Cetirizine HCl [Cetirizine 10mg 10 mg PO QDAY 02/06/20 02/06/20 Unknown History chew] amLODIPine [Norvasc] 10 mg PO DAILY 02/06/20 02/06/20 Unknown History traMADoL [Ultram] 50 mg PO Q6HR PRN 02/06/20 02/06/20 Unknown History Exam - Constitutional Vitals: Temp Pulse Resp BP Pulse Ox 99.2 F 87 18 111/69 100 02/06/20 22:13 02/06/20 22:13 02/06/20 22:13 02/06/20 22:13 02/06/20 22:13 General appearance: Present: no acute distress, mild distress, well-nourished - EENT Eyes: Present: PERRL ENT: hearing intact, clear oral mucosa - Neck Neck: Present: supple, normal ROM - Respiratory Respiratory effort: normal Respiratory: bilateral: CTA - Cardiovascular Heart rate: 88 Rhythm: regular Heart Sounds: Present: S1 & S2. Absent: rub, click - Extremities Extremities: pulses symmetrical, No edema Peripheral Pulses: within normal limits - Abdominal General gastrointestinal: Present: soft, non-tender, non-distended, normal bowel sounds Male genitourinary: Present: normal - Rectal Rectal Exam: deferred - Integumentary Integumentary: Present: clear, warm, dry - Musculoskeletal Musculoskeletal: strength equal bilaterally, other (Tremulous) - Psychiatric Psychiatric: appropriate mood/affect, intact judgment & insight - Neurologic Neurologic: CNII-XII intact, moves all extremities, other (Tremulous. Hands are shaking consistently throughout my exam, mental status normal) - Allied Health Allied health notes reviewed: nursing, case management HEART Score - HEART Score Troponin: Troponin T < 0.010 ng/mL (0.00-0.029) 02/06/20 12:35 Results - Labs CBC & Chem 7: 02/06/20 12:35 02/07/20 05:34 Labs: Laboratory Last Values WBC 6.9 K/mm3 (4.5-11.0) 02/06/20 12:35 RBC 2.94 M/mm3 (3.65-5.03) L 02/06/20 12:35 Hgb 10.5 gm/dl (11.8-15.2) L 02/06/20 12:35 Hct 32.4 % (35.5-45.6) L 02/06/20 12:35 MCV 110 fl (84-94) H 02/06/20 12:35 MCH 36 pg (28-32) H 02/06/20 12:35 MCHC 32 % (32-34) 02/06/20 12:35 RDW 14.4 % (13.2-15.2) 02/06/20 12:35 Plt Count 92 K/mm3 (140-440) L 02/06/20 12:35 Lymph % (Auto) 26.0 % (13.4-35.0) 02/06/20 12:35 [place] % (Auto) 10.6 % (0.0-7.3) H 02/06/20 12:35 Eos % (Auto) 2.6 % (0.0-4.3) 02/06/20 12:35 Baso % (Auto) 1.3 % (0.0-1.8) 02/06/20 12:35 Lymph # 1.8 K/mm3 (1.2-5.4) 02/06/20 12:35 [place] # 0.7 K/mm3 (0.0-0.8) 02/06/20 12:35 Eos # 0.2 K/mm3 (0.0-0.4) 02/06/20 12:35 Baso # 0.1 K/mm3 (0.0-0.1) 02/06/20 12:35 Seg Neutrophils % 59.5 % (40.0-70.0) 02/06/20 12:35 Seg Neutrophils # 4.1 K/mm3 (1.8-7.7) 02/06/20 12:35 PT 13.7 Sec. (12.2-14.9) 02/06/20 12:35 INR 1.07 (0.87-1.13) 02/06/20 12:35 APTT TNR 02/06/20 12:35 Sodium 134 mmol/L (137-145) L 02/06/20 12:35 Potassium 3.5 mmol/L (3.6-5.0) L 02/06/20 12:35 Chloride 92.4 mmol/L (98-107) L 02/06/20 12:35 Carbon Dioxide 15 mmol/L (22-30) L 02/06/20 12:35 Anion Gap 30 mmol/L 02/06/20 12:35 BUN 7 mg/dL (9-20) L 02/06/20 12:35 Creatinine 0.9 mg/dL (0.8-1.5) 02/06/20 12:35 Estimated GFR > 60 ml/min 02/06/20 12:35 BUN/Creatinine Ratio 8 % 02/06/20 12:35 Glucose 164 mg/dL (75-100) H 02/06/20 12:35 Ketones Quantitative Negative (Negative) 02/06/20 12:35 Lactic Acid 2.50 mmol/L (0.7-2.0) H* 02/06/20 14:08 Calcium 9.0 mg/dL (8.4-10.2) 02/06/20 12:35 Magnesium 1.70 mg/dL (1.7-2.3) 02/06/20 12:35 Total Bilirubin 4.10 mg/dL (0.1-1.2) H 02/06/20 12:35 Direct Bilirubin 1.8 mg/dL (0-0.2) H 02/06/20 12:35 Indirect Bilirubin 2.3 mg/dL 02/06/20 12:35 AST 103 units/L (5-40) H 02/06/20 12:35 ALT 80 units/L (7-56) H 02/06/20 12:35 Alkaline Phosphatase 412 units/L (35-129) H 02/06/20 12:35 Ammonia 67.0 umol/L (25-60) H 02/06/20 14:08 Total Creatine Kinase 102 units/L (55-170) 02/06/20 12:35 CK-MB (CK-2) < 1.0 ng/mL (0.0-4.0) 02/06/20 12:35 CK-MB (CK-2) Rel Index 0.9 (0-4) 02/06/20 12:35 Troponin T < 0.010 ng/mL (0.00-0.029) 02/06/20 12:35 Total Protein 8.0 g/dL (6.3-8.2) 02/06/20 12:35 Albumin 3.4 g/dL (3.9-5) L 02/06/20 12:35 Albumin/Globulin Ratio 0.7 % 02/06/20 12:35 Urine Color Yellow (Yellow) 02/06/20 Unknown Urine Turbidity Clear (Clear) 02/06/20 Unknown Urine pH 6.0 (5.0-7.0) 02/06/20 Unknown Ur Specific [place] 1.006 (1.003-1.030) 02/06/20 Unknown Urine Protein <15 mg/dl mg/dL (Negative) 02/06/20 Unknown Urine Glucose (UA) Neg mg/dL (Negative) 02/06/20 Unknown Urine Ketones Neg mg/dL (Negative) 02/06/20 Unknown Urine Blood Neg (Negative) 02/06/20 Unknown Urine Nitrite Neg (Negative) 02/06/20 Unknown Urine Bilirubin Neg (Negative) 02/06/20 Unknown Urine Urobilinogen 4.0 mg/dL (<2.0) 02/06/20 Unknown Ur Leukocyte Esterase Neg (Negative) 02/06/20 Unknown Urine WBC (Auto) < 1.0 /HPF (0.0-6.0) 02/06/20 Unknown Urine RBC (Auto) < 1.0 /HPF (0.0-6.0) 02/06/20 Unknown Urine Mucus Few /HPF 02/06/20 Unknown Urine Opiates Screen Presumptive negative 02/06/20 Unknown Urine Methadone Screen Presumptive negative 02/06/20 Unknown Ur Barbiturates Screen Presumptive negative 02/06/20 Unknown Ur Phencyclidine Scrn Presumptive negative 02/06/20 Unknown Ur Amphetamines Screen Presumptive negative 02/06/20 Unknown U Benzodiazepines Scrn Presumptive negative 02/06/20 Unknown Urine Cocaine Screen Presumptive negative 02/06/20 Unknown U Marijuana (THC) Screen Presumptive negative 02/06/20 Unknown Drugs of Abuse Note Disclamer 02/06/20 Unknown Plasma/Serum Alcohol < 0.01 % (0-0.07) 02/06/20 12:35 Short CBC 02/06/20 Range/Units 12:35 WBC 6.9 (4.5-11.0) K/mm3 Hgb 10.5 L (11.8-15.2) gm/dl Hct 32.4 L (35.5-45.6) % Plt Count 92 L (140-440) K/mm3 BMP 02/06/20 02/07/20 12:35 05:34 Sodium 134 L 136 L Potassium 3.5 L 3.1 L Chloride 92.4 L 101.4 Carbon Dioxide 15 L 23 D BUN 7 L 5 L Creatinine 0.9 0.5 L Glucose 164 H 105 H Calcium 9.0 7.7 L Cardiac Enzymes 02/06/20 Range/Units 12:35 Total Creatine Kinase 102 (55-170) units/L CK-MB (CK-2) < 1.0 (0.0-4.0) ng/mL Troponin T < 0.010 (0.00-0.029) ng/mL Liver Function 02/06/20 02/07/20 Range/Units 12:35 05:34 Total Bilirubin 4.10 H 2.40 H (0.1-1.2) mg/dL Direct Bilirubin 1.8 H (0-0.2) mg/dL AST 103 H 47 H (5-40) units/L ALT 80 H 47 (7-56) units/L Alkaline Phosphatase 412 H 266 H (35-129) units/L Albumin 3.4 L 2.7 L (3.9-5) g/dL Urine 02/06/20 Range/Units Unknown Urine Color Yellow (Yellow) Urine pH 6.0 (5.0-7.0) Ur Specific [place] 1.006 (1.003-1.030) Urine Protein <15 mg/dl (Negative) mg/dL Urine Glucose (UA) Neg (Negative) mg/dL Microbiology: Microbiology 02/06/20 14:08 Peripheral/Venous Blood Culture - Preliminary Culture in Progress 02/06/20 14:08 Peripheral/Venous Blood Culture - Preliminary Culture in Progress - Imaging and Cardiology CT Scan - head: report reviewed (No acute findings) Imaging and Cardiology: Chest x-ray Diffuse bilateral interstitial disease. Some improvement from the prior study and appears more very clear on today's exam whereas previously this was nodular this could represent changing pattern of edema. This could represent an atypical infection. [place]/IV: IV Catheter Type [Left INT / Saline Lock Antecubital] IV Catheter Type [Right INT / Saline Lock Forearm] Assessment and Plan Advance Directives: Yes (Full code) VTE prophylaxis?: Chemical Plan of care discussed with patient/family: Yes - Patient Problems (1) Delirium tremens Current Visit: Yes Status: Acute Plan to address problem: Patient is very tremulous and slightly agitated CIWA protocol initiated IV fluids initiated (2) Alcoholic ketoacidosis Current Visit: Yes Status: Acute Plan to address problem: IV fluids and CIWA protocol for now (3) Elevated lactic acid level Current Visit: Yes Status: Acute Plan to address problem: Secondary to alcohol withdrawal (4) SIRS (systemic inflammatory response syndrome) Current Visit: Yes Status: Acute Plan to address problem: Clinical picture consistent with Sirs. Patient has elevated lactic acid and tachycardia. (5) Acute hepatitis Current Visit: Yes Status: Acute Plan to address problem: Patient has elevated bilirubin and transaminitis Check hepatitis profile Should improve with IV fluids and alcohol withdrawal (6) EtOH dependence Current Visit: Yes Status: Chronic Qualifiers: Substance use status: in withdrawal Plan to address problem: Mental health consult for possible referral to outpatient rehab therapy (7) Hypokalemia Current Visit: Yes Status: Acute Plan to address problem: Mild supplemented (8) Hyponatremia Current Visit: Yes Status: Acute Plan to address problem: IV fluids for now (9) Anemia Current Visit: Yes Status: Chronic Qualifiers: Anemia type: unspecified type Qualified Code(s): D64.9 - Anemia, unspecified Plan to address problem: Anemia work-up (10) Malnutrition Current Visit: Yes Status: Acute Qualifiers: Protein-calorie malnutrition severity: mild Plan to address problem: Dietary supplements (11) DVT prophylaxis Current Visit: Yes Status: Acute Plan to address problem: Heparin 5000 every 12 and GI prophylaxis
[2020-02-06] MEDS ORDERED: HALOPERIDOL LACTATE 5 MG/1 ML INJ IV PRN (22:58)
[2020-02-06] MEDS ORDERED: ONDANSETRON 4 MG/2 ML INJ IV PRN (22:58)
[2020-02-06] MEDS ORDERED: HYDROmorphone 1 MG/1 ML INJ IV PRN (22:58)
[2020-02-06] MEDS ORDERED: chlordiazePOXIDE 25 MG CAP PO PRN ×2 (22:58)
[2020-02-06] MEDS ORDERED: oxyCODONE /ACETAMINOPHEN 5-325MG TAB PO PRN (22:58)
[2020-02-06] MEDS ORDERED: LORazepam 2 MG/ML VIAL IV PRN (22:58)
[2020-02-06] MEDS: D5W/0.9% NACL 1,000 ML IV SCH (23:38)
[2020-02-06] MEDS: FAMOTIDINE 20 MG/2 ML INJ IV SCH (23:38)
[2020-02-07 06:24] LABS: Alanine Aminotransferase 47 units/L (7-56); Albumin 2.7 g/dL (3.9-5); BUN/Creatinine Ratio 10; Blood Urea Nitrogen 5 mg/dL (9-20); Calcium 7.7 mg/dL (8.4-10.2); Hemolysis Index 1
[2020-02-07 06:28] LABS: Basophils % (Auto) 0.7 % (0.0-1.8); Eosinophils # (Auto) 0.2 K/mm3 (0.0-0.4); Hematocrit 23.8 % (35.5-45.6); Hemoglobin 7.9 gm/dl (11.8-15.2); Lymphocytes # (Auto) 0.5 K/mm3 (1.2-5.4); Mean Corpuscular HGB Conc 33 % (32-34); Mean Corpuscular Volume 106 fl (84-94); Monocytes # (Auto) 0.6 K/mm3 (0.0-0.8); Monocytes % (Auto) 12.7 % (0.0-7.3); Red Blood Count 2.26 M/mm3 (3.65-5.03); Red Cell Distribution Width 13.7 % (13.2-15.2)
[2020-02-07] MEDS ORDERED: POTASSIUM CHLORIDE ER 20 MEQ TAB PO ONE (06:47)
[2020-02-07 07:18] LABS: Platelet Count 98 K/mm3 (140-440)
--- NOTE | 2020-02-07 08:07 | Progress Note ---
Assessment and Plan Assessment and plan: 59-year-old male patient with significant history of COPD, GERD, tobacco and alcohol use was admitted through emergency room with tremulousness, possible alcohol withdrawal symptoms,Patient's hemoglobin dropped from 10.5-7.9, will repeat H&H, check stool for occult blood --Alcohol withdrawal symptoms; Fall precautions, CIHI protocol Thiamine folic acid --Anemia; sudden drop in H&H from 10.5-7.9,Rpt hb 8.0 No external signs of bleeding, repeat H&H Stool for occult blood, IV Protonix --Thrombocytopenia; secondary to chronic alcohol use Alcoholic liver disease, closely monitor --Hypokalemia; replace with KCl Magnesium normal range --Hyponatremia; mild improvement Closely monitor --Sirs; organ dysfunction leukocytosis, tachypnea and lactic acidosis --Lactic acidosis; probably secondary to alcohol related Sirs, IV fluids, follow cultures --Alcoholic liver disease; LFTs trending down Closely monitor. Continue normal saline agitation --Severe malnutrition/hypoalbuminemia[albumin 2.7]/BMI 18 Due to chronic alcohol use, nutrition supplements, thiamine folic acid, Nutrition consult --DVT prophylaxis; Lovenox --Full CODE STATUS Discharge planning per case management Closely monitor and adjust management as needed Plan of care reviewed with the patient and his nurse History Interval history: Patient seen and examined at the bedside this morning Patient's chart ,medications, tests reviewed Patient has history of alcohol use ,mild tremulousness On CIWA protocol, Denies chest pain shortness of breath Vital signs reviewed Hospitalist Physical - Constitutional Vitals: Temp Pulse Resp BP Pulse Ox 99.3 F 96 H 18 101/59 97 02/07/20 05:38 02/07/20 05:38 02/07/20 05:38 02/07/20 05:38 02/07/20 05:38 General appearance: Present: mild distress, well-nourished, other (Tremulousness) - EENT Eyes: Present: PERRL, EOM intact - Neck Neck: Present: supple, normal ROM - Respiratory Respiratory effort: normal Respiratory: bilateral: diminished, negative: rales, rhonchi, wheezing - Cardiovascular Rhythm: regular Heart Sounds: Present: S1 & S2 - Extremities Extremities: no ischemia, No edema - Abdominal General gastrointestinal: soft, non-tender, non-distended, normal bowel sounds - Integumentary Integumentary: Present: clear, warm - Psychiatric Psychiatric: appropriate mood/affect, cooperative, other (Tremulousness) - Neurologic Neurologic: moves all extremities HEART Score - HEART Score Troponin: Troponin T < 0.010 ng/mL (0.00-0.029) 02/06/20 12:35 Results - Labs CBC & Chem 7: 02/07/20 08:42 02/07/20 05:34 Labs: Laboratory Last Values WBC 4.5 K/mm3 (4.5-11.0) 02/07/20 05:34 RBC 2.26 M/mm3 (3.65-5.03) L 02/07/20 05:34 Hgb 7.9 gm/dl (11.8-15.2) L 02/07/20 05:34 Hct 23.8 % (35.5-45.6) L D 02/07/20 05:34 MCV 106 fl (84-94) H 02/07/20 05:34 MCH 35 pg (28-32) H 02/07/20 05:34 MCHC 33 % (32-34) 02/07/20 05:34 RDW 13.7 % (13.2-15.2) 02/07/20 05:34 Plt Count 98 K/mm3 (140-440) L 02/07/20 05:34 Lymph % (Auto) 12.0 % (13.4-35.0) L 02/07/20 05:34 [place] % (Auto) 12.7 % (0.0-7.3) H 02/07/20 05:34 Eos % (Auto) 5.0 % (0.0-4.3) H 02/07/20 05:34 Baso % (Auto) 0.7 % (0.0-1.8) 02/07/20 05:34 Lymph # 0.5 K/mm3 (1.2-5.4) L 02/07/20 05:34 [place] # 0.6 K/mm3 (0.0-0.8) 02/07/20 05:34 Eos # 0.2 K/mm3 (0.0-0.4) 02/07/20 05:34 Baso # 0.0 K/mm3 (0.0-0.1) 02/07/20 05:34 Seg Neutrophils % 69.6 % (40.0-70.0) 02/07/20 05:34 Seg Neutrophils # 3.1 K/mm3 (1.8-7.7) 02/07/20 05:34 PT 13.7 Sec. (12.2-14.9) 02/06/20 12:35 INR 1.07 (0.87-1.13) 02/06/20 12:35 APTT TNR 02/06/20 12:35 Sodium 136 mmol/L (137-145) L 02/07/20 05:34 Potassium 3.1 mmol/L (3.6-5.0) L 02/07/20 05:34 Chloride 101.4 mmol/L (98-107) 02/07/20 05:34 Carbon Dioxide 23 mmol/L (22-30) D 02/07/20 05:34 Anion Gap 15 mmol/L 02/07/20 05:34 BUN 5 mg/dL (9-20) L 02/07/20 05:34 Creatinine 0.5 mg/dL (0.8-1.5) L 02/07/20 05:34 Estimated GFR > 60 ml/min 02/07/20 05:34 BUN/Creatinine Ratio 10 % 02/07/20 05:34 Glucose 105 mg/dL (75-100) H 02/07/20 05:34 POC Glucose 102 (70-105) 02/07/20 07:26 Ketones Quantitative Negative (Negative) 02/06/20 12:35 Lactic Acid 2.50 mmol/L (0.7-2.0) H* 02/06/20 14:08 Calcium 7.7 mg/dL (8.4-10.2) L 02/07/20 05:34 Magnesium 1.70 mg/dL (1.7-2.3) 02/06/20 23:48 Total Bilirubin 2.40 mg/dL (0.1-1.2) H 02/07/20 05:34 Direct Bilirubin 1.8 mg/dL (0-0.2) H 02/06/20 12:35 Indirect Bilirubin 2.3 mg/dL 02/06/20 12:35 AST 47 units/L (5-40) H 02/07/20 05:34 ALT 47 units/L (7-56) 02/07/20 05:34 Alkaline Phosphatase 266 units/L (35-129) H 02/07/20 05:34 Ammonia 67.0 umol/L (25-60) H 02/06/20 14:08 Total Creatine Kinase 102 units/L (55-170) 02/06/20 12:35 CK-MB (CK-2) < 1.0 ng/mL (0.0-4.0) 02/06/20 12:35 CK-MB (CK-2) Rel Index 0.9 (0-4) 02/06/20 12:35 Troponin T < 0.010 ng/mL (0.00-0.029) 02/06/20 12:35 Total Protein 6.2 g/dL (6.3-8.2) L D 02/07/20 05:34 Albumin 2.7 g/dL (3.9-5) L 02/07/20 05:34 Albumin/Globulin Ratio 0.8 % 02/07/20 05:34 Urine Color Yellow (Yellow) 02/06/20 Unknown Urine Turbidity Clear (Clear) 02/06/20 Unknown Urine pH 6.0 (5.0-7.0) 02/06/20 Unknown Ur Specific [place] 1.006 (1.003-1.030) 02/06/20 Unknown Urine Protein <15 mg/dl mg/dL (Negative) 02/06/20 Unknown Urine Glucose (UA) Neg mg/dL (Negative) 02/06/20 Unknown Urine Ketones Neg mg/dL (Negative) 02/06/20 Unknown Urine Blood Neg (Negative) 02/06/20 Unknown Urine Nitrite Neg (Negative) 02/06/20 Unknown Urine Bilirubin Neg (Negative) 02/06/20 Unknown Urine Urobilinogen 4.0 mg/dL (<2.0) 02/06/20 Unknown Ur Leukocyte Esterase Neg (Negative) 02/06/20 Unknown Urine WBC (Auto) < 1.0 /HPF (0.0-6.0) 02/06/20 Unknown Urine RBC (Auto) < 1.0 /HPF (0.0-6.0) 02/06/20 Unknown Urine Mucus Few /HPF 02/06/20 Unknown Urine Opiates Screen Presumptive negative 02/06/20 Unknown Urine Methadone Screen Presumptive negative 02/06/20 Unknown Ur Barbiturates Screen Presumptive negative 02/06/20 Unknown Ur Phencyclidine Scrn Presumptive negative 02/06/20 Unknown Ur Amphetamines Screen Presumptive negative 02/06/20 Unknown U Benzodiazepines Scrn Presumptive negative 02/06/20 Unknown Urine Cocaine Screen Presumptive negative 02/06/20 Unknown U Marijuana (THC) Screen Presumptive negative 02/06/20 Unknown Drugs of Abuse Note Disclamer 02/06/20 Unknown Plasma/Serum Alcohol < 0.01 % (0-0.07) 02/06/20 12:35 Microbiology: Microbiology 02/06/20 14:08 Peripheral/Venous Blood Culture - Preliminary Culture in Progress 02/06/20 14:08 Peripheral/Venous Blood Culture - Preliminary Culture in Progress [place]/IV: Voiding Method Urinal IV Catheter Type [Left INT / Saline Lock Antecubital] IV Catheter Type [Right INT / Saline Lock Forearm] Active Medications - Current Medications Current Medications: Generic Name Dose Route Start Last Admin Trade Name Freq PRN Reason Stop Dose Admin Acetaminophen 650 mg 02/06/20 22:58 Tylenol PO Q4H PRN Pain MILD(1-3)/Fever >100.5/MILLER Chlordiazepoxide HCl 50 mg 02/06/20 22:58 Librium PO Q1H PRN CIWA-Ar 8-15 Chlordiazepoxide HCl 100 mg 02/06/20 22:58 Librium PO Q1H PRN CIWA-Ar 16-25 Famotidine 20 mg 02/06/20 23:00 02/06/20 23:38 Pepcid IV 20 mg BID KATLYN Administration Haloperidol Lactate 5 mg 02/06/20 22:58 Haldol IV Q1H PRN Unrespon. to mult. doses BZD's Hydromorphone HCl 0.5 mg 02/06/20 22:58 Dilaudid IV Q3H PRN Pain , Severe (7-10) Dextrose/Sodium Chloride 1,000 mls @ 100 mls/hr 02/06/20 23:00 02/06/20 23:38 D5ns IV 100 mls/hr DIRECT KATLYN Administration Potassium Chloride 10 meq in 100 mls @ 100 mls/hr 02/07/20 07:00 Kcl 10meq/100ml IV 02/07/20 10:59 Q1H KATLYN Lorazepam 4 mg 02/06/20 22:58 Ativan IV Q15MIN PRN CIWA-Ar >25 Ondansetron HCl 4 mg 02/06/20 22:58 Zofran IV Q8H PRN Nausea And Vomiting Oxycodone/Acetaminophen 1 tab 02/06/20 22:58 Percocet 5/325 PO Q6H PRN Pain, Moderate (4-6) Sodium Chloride 10 ml 02/07/20 10:00 Sodium Chloride Flush Syringe 10 Ml IV BID AKTLYN Sodium Chloride 10 ml 02/06/20 22:58 Sodium Chloride Flush Syringe 10 Ml IV PRN PRN LINE FLUSH
[2020-02-07] MEDS ORDERED: HALOPERIDOL LACTATE 5 MG/1 ML INJ IM PRN (08:20)
[2020-02-07] MEDS: POTASSIUM CHLORIDE 10 MEQ 10 MEQ/100 ML BAG IV SCH ×4 (09:04→12:30)
[2020-02-07] MEDS: D5W/0.9% NACL 1,000 ML IV SCH ×2 (09:09→20:40)
[2020-02-07] MEDS: FAMOTIDINE 20 MG/2 ML INJ IV SCH ×2 (09:15→21:53)
[2020-02-07 09:32] LABS: Hematocrit 24.4 % (35.5-45.6)
--- NOTE | 2020-02-07 11:31 | Consultation ---
History of Present Illness - Reason for Consult Consult date: 02/07/20 Reason for consult: ETOH withdrawals - History of Present Psychiatric Illness The patient's medical record was reviewed and the patient's progress was discussed with the nursing staff. During my interview with the patient today, he was lying in bed awake. He is a/o x 3. He is calm and cooperative. He is conversational. He makes good eye contact. When asking the patient if he knew why psych services was consulted, he smiled and replied, "because I drink?" The patient states he was admitted into the hospital because he "started having withdrawals." He states, "I can control my drinking. I know what I'm doing." He then says, "I'm good." The patient says he drinks, "four 24oz daily." He says, "but I can stop or control it when I want to." He denies any illicit drug use. He says he smokes "a black and mild a day." He denies any past psychiatric histoy. He denies every seeing a psychiatrist or ever being on any psychotropic medication. The patient denies SI/HI and states he's never attempted suicide or ever had any feelings of self harm. He says people consider him a "happy alcoholic." The patient denies hallucinations of any kind. But states that he's had some withdrawal symptoms, like "the shakes." He denies any problems with his appetite or sleep pattern. PAST PSYCHIATRIC HISTORY Diagnoses: Denies Suicide attempts or Self-harm behavior: Denies Prior psychiatric hospitalizations: Denies Substance Abuse history: Denies Previous psychiatric medications tried: Denies Outpatient treatment: Denies PAST MEDICAL HISTORY: None reported Family Psychiatric History: Not reported SOCIAL HISTORY Marital Status: "" Living Arrangements: "my brother lives with me" Employment Status: "disabled" Access to guns/weapons: "not at all" Education: "high school graduate" History of Abuse: None reported Legal History: Denies REVIEW OF SYSTEMS Constitutional: Negative for weight loss ENT: Negative for stridor Respiratory: Negative for cough or hemoptysis All other systems reviewed and are negative MENTAL STATUS EXAMINATION General Appearance: Dressed appropriately Behavior: Calm, cooperative. Polite Mood: "good" Affect and affective range: Congruent with stated mood Speech: Normal tone and pace Thought Process: Goal directed Thought Content: Suicidal Ideation: Denies Homicidal Ideation: Denies Hallucinations: Denies Delusions: Denies Insight/Judgment: Limited Memory/Cognition: Good Assessment and Plan Alcohol Dependence RECOMMENDATIONS Nicotine patch 7mg daily Risks, benefits and alternatives of medications discussed with the patient, questions answered and consent obtained from patient. PSYCHOTHERAPY: Supportive psychotherapy provided MEDICAL: Per primary team DELIRIUM PRECAUTIONS: Please re-orient patient frequently, keep lights on during the day, and minimize benzodiazepines and opiates as these medications could worsen patient's confusion. ANESTHESIOLOGIST AND CRITICAL CARE: Per medical team DISPOSITION: The patient does not meet the requirement for acute inpatient psychiatric treatment. He may discharge home once medically clear. The patient is to abstain from alcohol use. The assess or give the patient resources for 12-step or rehab programs The patient should follow up with primary in 7 to 10 days Will sign off. Thank you for the consult. Please contact with any questions and/or concerns. Medications and Allergies Allergies Allergy/AdvReac Type Severity Reaction Status Date / Time lactose AdvReac Unknown Verified 05/13/18 12:39 Home Medications Medication Instructions Recorded Confirmed Last Taken Type Budesonide/Formoterol Fumarate 1 puff PO DAILY #1 hfa.aer.ad 05/15/18 02/06/20 Unknown Rx [Symbicort 160-4.5 Mcg Inhaler] Cetirizine HCl [Cetirizine 10mg 10 mg PO QDAY 02/06/20 02/06/20 Unknown History chew] amLODIPine [Norvasc] 10 mg PO DAILY 02/06/20 02/06/20 Unknown History traMADoL [Ultram] 50 mg PO Q6HR PRN 02/06/20 02/06/20 Unknown History Active Meds: Active Medications Acetaminophen (Tylenol) 650 mg PO Q4H PRN PRN Reason: Pain MILD(1-3)/Fever >100.5/MILLER Chlordiazepoxide HCl (Librium) 50 mg PO Q1H PRN PRN Reason: CIWA-Ar 8-15 Chlordiazepoxide HCl (Librium) 100 mg PO Q1H PRN PRN Reason: CIWA-Ar 16-25 Famotidine (Pepcid) 20 mg IV BID KATLYN Last Admin: 02/07/20 09:15 Dose: 20 mg Documented by: Haloperidol Lactate (Haldol) 2 mg IM Q6H PRN PRN Reason: Agitation Hydromorphone HCl (Dilaudid) 0.5 mg IV Q3H PRN PRN Reason: Pain , Severe (7-10) Dextrose/Sodium Chloride (D5ns) 1,000 mls @ 100 mls/hr IV DIRECT [facility] Last Admin: 02/07/20 09:09 Dose: 100 mls/hr Documented by: Lorazepam (Ativan) 4 mg IV Q15MIN PRN PRN Reason: CIWA-Ar >25 Ondansetron HCl (Zofran) 4 mg IV Q8H PRN PRN Reason: Nausea And Vomiting Oxycodone/Acetaminophen (Percocet 5/325) 1 tab PO Q6H PRN PRN Reason: Pain, Moderate (4-6) Sodium Chloride (Sodium Chloride Flush Syringe 10 Ml) 10 ml IV BID [facility] Last Admin: 02/07/20 09:15 Dose: 10 ml Documented by: Sodium Chloride (Sodium Chloride Flush Syringe 10 Ml) 10 ml IV PRN PRN PRN Reason: LINE FLUSH Mental Status Exam - Vital signs Last Vital Signs Temp 99.3 F 02/07/20 05:38 Pulse 96 H 02/07/20 05:38 Resp 18 02/07/20 05:38 BP 101/59 02/07/20 05:38 Pulse Ox 97 02/07/20 05:38 Results Result Diagrams: 02/07/20 08:42 02/07/20 05:34 Abnormal lab results 02/06/20 02/06/20 02/06/20 Range/Units 12:35 12:35 13:16 RBC 2.94 L (3.65-5.03) M/mm3 Hgb 10.5 L (11.8-15.2) gm/dl Hct 32.4 L (35.5-45.6) % MCV 110 H (84-94) fl MCH 36 H (28-32) pg Plt Count 92 L (140-440) K/mm3 Lymph % (Auto) (13.4-35.0) % [place] % (Auto) 10.6 H (0.0-7.3) % Eos % (Auto) (0.0-4.3) % Lymph # (1.2-5.4) K/mm3 Sodium 134 L (137-145) mmol/L Potassium 3.5 L (3.6-5.0) mmol/L Chloride 92.4 L (98-107) mmol/L Carbon Dioxide 15 L (22-30) mmol/L BUN 7 L (9-20) mg/dL Creatinine (0.8-1.5) mg/dL Glucose 164 H (75-100) mg/dL Lactic Acid 2.70 H* (0.7-2.0) mmol/L Calcium (8.4-10.2) mg/dL Total Bilirubin 4.10 H (0.1-1.2) mg/dL Direct Bilirubin 1.8 H (0-0.2) mg/dL AST 103 H (5-40) units/L ALT 80 H (7-56) units/L Alkaline Phosphatase 412 H (35-129) units/L Ammonia (25-60) umol/L Total Protein (6.3-8.2) g/dL Albumin 3.4 L (3.9-5) g/dL 02/06/20 02/06/20 02/07/20 Range/Units 14:08 14:08 05:34 RBC 2.26 L (3.65-5.03) M/mm3 Hgb 7.9 L (11.8-15.2) gm/dl Hct 23.8 L D (35.5-45.6) % MCV 106 H (84-94) fl MCH 35 H (28-32) pg Plt Count 98 L (140-440) K/mm3 Lymph % (Auto) 12.0 L (13.4-35.0) % [place] % (Auto) 12.7 H (0.0-7.3) % Eos % (Auto) 5.0 H (0.0-4.3) % Lymph # 0.5 L (1.2-5.4) K/mm3 Sodium (137-145) mmol/L Potassium (3.6-5.0) mmol/L Chloride (98-107) mmol/L Carbon Dioxide (22-30) mmol/L BUN (9-20) mg/dL Creatinine (0.8-1.5) mg/dL Glucose (75-100) mg/dL Lactic Acid 2.50 H* (0.7-2.0) mmol/L Calcium (8.4-10.2) mg/dL Total Bilirubin (0.1-1.2) mg/dL Direct Bilirubin (0-0.2) mg/dL AST (5-40) units/L ALT (7-56) units/L Alkaline Phosphatase (35-129) units/L Ammonia 67.0 H (25-60) umol/L Total Protein (6.3-8.2) g/dL Albumin (3.9-5) g/dL 02/07/20 02/07/20 02/07/20 Range/Units 05:34 08:42 08:42 RBC (3.65-5.03) M/mm3 Hgb 8.0 L (11.8-15.2) gm/dl Hct 24.4 L (35.5-45.6) % MCV (84-94) fl MCH (28-32) pg Plt Count (140-440) K/mm3 Lymph % (Auto) (13.4-35.0) % [place] % (Auto) (0.0-7.3) % Eos % (Auto) (0.0-4.3) % Lymph # (1.2-5.4) K/mm3 Sodium 136 L (137-145) mmol/L Potassium 3.1 L (3.6-5.0) mmol/L Chloride (98-107) mmol/L Carbon Dioxide (22-30) mmol/L BUN 5 L (9-20) mg/dL Creatinine 0.5 L (0.8-1.5) mg/dL Glucose 105 H (75-100) mg/dL Lactic Acid 2.30 H* (0.7-2.0) mmol/L Calcium 7.7 L (8.4-10.2) mg/dL Total Bilirubin 2.40 H (0.1-1.2) mg/dL Direct Bilirubin (0-0.2) mg/dL AST 47 H (5-40) units/L ALT (7-56) units/L Alkaline Phosphatase 266 H (35-129) units/L Ammonia (25-60) umol/L Total Protein 6.2 L D (6.3-8.2) g/dL Albumin 2.7 L (3.9-5) g/dL All other labs normal.
[2020-02-07] MEDS: NICOTINE 7 MG/24 HR PATCH TD SCH (16:34)
[2020-02-07] MEDS: ALUM-MAG HYDROXIDE-SIMETHICONE 200-200-20MG/5ML ORAL LIQD 30 ML PO PRN (20:40)
[2020-02-07] MEDS: ACETAMINOPHEN 325 MG TAB PO PRN (21:52)
[2020-02-07] MEDS ORDERED: AZITHROMYCIN 500 MG in SODIUM CHLORIDE 0.9% 250ML 250 ML IV SCH (23:30)
[2020-02-08 05:13] LABS: Hematocrit 23.3 % (35.5-45.6); Hemoglobin 7.8 gm/dl (11.8-15.2)
[2020-02-08 05:33] LABS: BUN/Creatinine Ratio 5; Blood Urea Nitrogen 3 mg/dL (9-20); Calcium 7.9 mg/dL (8.4-10.2); Hemolysis Index 2
[2020-02-08] MEDS: D5W/0.9% NACL 1,000 ML IV SCH ×2 (05:56→20:13)
[2020-02-08] MEDS ORDERED: POTASSIUM CHLORIDE ER 10 MEQ TAB PO NR (08:15)
[2020-02-08] MEDS: NICOTINE 7 MG/24 HR PATCH TD SCH (10:40)
[2020-02-08] MEDS: FAMOTIDINE 20 MG/2 ML INJ IV SCH (10:40)
[2020-02-08] MEDS: ALUM-MAG HYDROXIDE-SIMETHICONE 200-200-20MG/5ML ORAL LIQD 30 ML PO PRN (10:41)
[2020-02-08] MEDS: ACETAMINOPHEN 325 MG TAB PO PRN (11:16)
--- NOTE | 2020-02-08 12:25 | Progress Note ---
Assessment and Plan Assessment and plan: --PUI/evaluate and rule out COVID-19; Pearl PCR, inflammatory markers, empiric antibiotics ID consulted, contact and droplet isolation --Febrile illness; Empiric antibiotics, antipyretics --Alcohol withdrawal symptoms; Fall precautions, [facility] protocol Thiamine folic acid --Anemia; sudden drop in H&H from 10.5-7.9,Rpt hb 8.0 No external signs of bleeding, Stool for occult blood, IV Protonix --Thrombocytopenia; secondary to chronic alcohol use Alcoholic liver disease, closely monitor --Hypokalemia; replace with KCl Magnesium normal range --Hyponatremia; mild improvement Closely monitor --Sirs; organ dysfunction leukocytosis, tachypnea and lactic acidosis --Lactic acidosis; probably secondary to alcohol related Sirs, IV fluids, follow cultures --Alcoholic liver disease; LFTs trending down Closely monitor. Continue normal saline agitation --Severe malnutrition/hypoalbuminemia[albumin 2.7]/BMI 18 Due to chronic alcohol use, nutrition supplements, thiamine folic acid, Nutrition consult --DVT prophylaxis; Lovenox --Full CODE STATUS Discharge planning per case management Closely monitor and adjust management as needed Plan of care reviewed with the patient and his nurse Disposition; follow ID evaluation, COVID work-up Discharge when medically stable Brief history: 59-year-old male patient with significant history of COPD, GERD, tobacco and alcohol use was admitted through emergency room with tremulousness, possible alcohol withdrawal symptoms,Patient's hemoglobin dropped from 10.5-7.9, will repeat H&H more than 8. Requested stool for occult blood Today patient was febrile, critically ill looking, discussed with ID, high suspicion for COVID/PUI, placed isolation precautions Transfer to [facility] room, pearl PCR, inflammatory markers and ID consult requested. History Interval history: Patient seen and examined at the bedside this morning Patient's chart medications, tests and recommendations reviewed Patient is febrile T-max 101.3F Patient denies any chest pain or shortness of breath Vital signs reviewed Hospitalist Physical - Constitutional Vitals: Temp Pulse Resp BP Pulse Ox 101.3 F H 95 H 20 116/68 100 02/08/20 11:07 02/08/20 11:07 02/08/20 11:07 02/08/20 11:07 02/08/20 11:07 General appearance: Present: mild distress, well-nourished, other (Tremulousness, febrile) - EENT Eyes: Present: PERRL, EOM intact - Neck Neck: Present: supple, normal ROM - Respiratory Respiratory effort: normal Respiratory: bilateral: diminished, negative: rales, rhonchi, wheezing - Cardiovascular Rhythm: regular Heart Sounds: Present: S1 & S2 - Extremities Extremities: no ischemia, No edema - Abdominal General gastrointestinal: soft, non-tender, non-distended, normal bowel sounds - Integumentary Integumentary: Present: clear, warm - Psychiatric Psychiatric: appropriate mood/affect - Neurologic Neurologic: moves all extremities HEART Score - HEART Score Troponin: Troponin T < 0.010 ng/mL (0.00-0.029) 02/06/20 12:35 Results - Labs CBC & Chem 7: 02/08/20 04:52 02/08/20 04:52 Labs: Laboratory Last Values WBC 4.5 K/mm3 (4.5-11.0) 02/07/20 05:34 RBC 2.26 M/mm3 (3.65-5.03) L 02/07/20 05:34 Hgb 7.8 gm/dl (11.8-15.2) L 02/08/20 04:52 Hct 23.3 % (35.5-45.6) L 02/08/20 04:52 MCV 106 fl (84-94) H 02/07/20 05:34 MCH 35 pg (28-32) H 02/07/20 05:34 MCHC 33 % (32-34) 02/07/20 05:34 RDW 13.7 % (13.2-15.2) 02/07/20 05:34 Plt Count 98 K/mm3 (140-440) L 02/07/20 05:34 Lymph % (Auto) 12.0 % (13.4-35.0) L 02/07/20 05:34 [place] % (Auto) 12.7 % (0.0-7.3) H 02/07/20 05:34 Eos % (Auto) 5.0 % (0.0-4.3) H 02/07/20 05:34 Baso % (Auto) 0.7 % (0.0-1.8) 02/07/20 05:34 Lymph # 0.5 K/mm3 (1.2-5.4) L 02/07/20 05:34 [place] # 0.6 K/mm3 (0.0-0.8) 02/07/20 05:34 Eos # 0.2 K/mm3 (0.0-0.4) 02/07/20 05:34 Baso # 0.0 K/mm3 (0.0-0.1) 02/07/20 05:34 Seg Neutrophils % 69.6 % (40.0-70.0) 02/07/20 05:34 Seg Neutrophils # 3.1 K/mm3 (1.8-7.7) 02/07/20 05:34 PT 13.7 Sec. (12.2-14.9) 02/06/20 12:35 INR 1.07 (0.87-1.13) 02/06/20 12:35 APTT TNR 02/06/20 12:35 Sodium 136 mmol/L (137-145) L 02/08/20 04:52 Potassium 3.5 mmol/L (3.6-5.0) L 02/08/20 04:52 Chloride 102.7 mmol/L (98-107) 02/08/20 04:52 Carbon Dioxide 23 mmol/L (22-30) 02/08/20 04:52 Anion Gap 14 mmol/L 02/08/20 04:52 BUN 3 mg/dL (9-20) L 02/08/20 04:52 Creatinine 0.6 mg/dL (0.8-1.5) L 02/08/20 04:52 Estimated GFR > 60 ml/min 02/08/20 04:52 BUN/Creatinine Ratio 5 % 02/08/20 04:52 Glucose 98 mg/dL (75-100) 02/08/20 04:52 POC Glucose 106 (70-105) H 02/07/20 21:23 Ketones Quantitative Negative (Negative) 02/06/20 12:35 Lactic Acid 1.30 mmol/L (0.7-2.0) 02/08/20 04:52 Calcium 7.9 mg/dL (8.4-10.2) L 02/08/20 04:52 Magnesium 1.70 mg/dL (1.7-2.3) 02/06/20 23:48 Total Bilirubin 2.40 mg/dL (0.1-1.2) H 02/07/20 05:34 Direct Bilirubin 1.8 mg/dL (0-0.2) H 02/06/20 12:35 Indirect Bilirubin 2.3 mg/dL 02/06/20 12:35 AST 47 units/L (5-40) H 02/07/20 05:34 ALT 47 units/L (7-56) 02/07/20 05:34 Alkaline Phosphatase 266 units/L (35-129) H 02/07/20 05:34 Ammonia 67.0 umol/L (25-60) H 02/06/20 14:08 Total Creatine Kinase 102 units/L (55-170) 02/06/20 12:35 CK-MB (CK-2) < 1.0 ng/mL (0.0-4.0) 02/06/20 12:35 CK-MB (CK-2) Rel Index 0.9 (0-4) 02/06/20 12:35 Troponin T < 0.010 ng/mL (0.00-0.029) 02/06/20 12:35 Total Protein 6.2 g/dL (6.3-8.2) L D 02/07/20 05:34 Albumin 2.7 g/dL (3.9-5) L 02/07/20 05:34 Albumin/Globulin Ratio 0.8 % 02/07/20 05:34 Urine Color Yellow (Yellow) 02/06/20 Unknown Urine Turbidity Clear (Clear) 02/06/20 Unknown Urine pH 6.0 (5.0-7.0) 02/06/20 Unknown Ur Specific [place] 1.006 (1.003-1.030) 02/06/20 Unknown Urine Protein <15 mg/dl mg/dL (Negative) 02/06/20 Unknown Urine Glucose (UA) Neg mg/dL (Negative) 02/06/20 Unknown Urine Ketones Neg mg/dL (Negative) 02/06/20 Unknown Urine Blood Neg (Negative) 02/06/20 Unknown Urine Nitrite Neg (Negative) 02/06/20 Unknown Urine Bilirubin Neg (Negative) 02/06/20 Unknown Urine Urobilinogen 4.0 mg/dL (<2.0) 02/06/20 Unknown Ur Leukocyte Esterase Neg (Negative) 02/06/20 Unknown Urine WBC (Auto) < 1.0 /HPF (0.0-6.0) 02/06/20 Unknown Urine RBC (Auto) < 1.0 /HPF (0.0-6.0) 02/06/20 Unknown Urine Mucus Few /HPF 02/06/20 Unknown Urine Opiates Screen Presumptive negative 02/06/20 Unknown Urine Methadone Screen Presumptive negative 02/06/20 Unknown Ur Barbiturates Screen Presumptive negative 02/06/20 Unknown Ur Phencyclidine Scrn Presumptive negative 02/06/20 Unknown Ur Amphetamines Screen Presumptive negative 02/06/20 Unknown U Benzodiazepines Scrn Presumptive negative 02/06/20 Unknown Urine Cocaine Screen Presumptive negative 02/06/20 Unknown U Marijuana (THC) Screen Presumptive negative 02/06/20 Unknown Drugs of Abuse Note Disclamer 02/06/20 Unknown Plasma/Serum Alcohol < 0.01 % (0-0.07) 02/06/20 12:35 Microbiology: Microbiology 02/06/20 14:08 Peripheral/Venous Blood Culture - Preliminary NO GROWTH AFTER 24 HOURS 02/06/20 14:08 Peripheral/Venous Blood Culture - Preliminary NO GROWTH AFTER 24 HOURS [place]/IV: Voiding Method Urinal IV Catheter Type [Left INT / Saline Lock Antecubital] IV Catheter Type [Right INT / Saline Lock Forearm] Active Medications - Current Medications Current Medications: Generic Name Dose Route Start Last Admin Trade Name Freq PRN Reason Stop Dose Admin Acetaminophen 650 mg 02/06/20 22:58 02/08/20 11:16 Tylenol PO 650 mg Q4H PRN Administration Pain MILD(1-3)/Fever >100.5/MILLER Al Hydrox/Mg Hydrox/Simethicone 30 ml 02/07/20 19:53 02/08/20 10:41 Alum-Mag Hydrox-Simeth 414-564-43td/5ml PO 30 ml Q6HR PRN Administration Indigestion Azithromycin 500 mg 02/08/20 22:00 Zithromax PO 02/11/20 22:01 QHS KATLYN Chlordiazepoxide HCl 50 mg 02/06/20 22:58 Librium PO Q1H PRN CIWA-Ar 8-15 Chlordiazepoxide HCl 100 mg 02/06/20 22:58 Librium PO Q1H PRN CIWA-Ar 16-25 Famotidine 20 mg 02/08/20 22:00 Pepcid PO BID KATLYN Haloperidol Lactate 2 mg 02/07/20 08:20 Haldol IM Q6H PRN Agitation Hydromorphone HCl 0.5 mg 02/06/20 22:58 Dilaudid IV Q3H PRN Pain , Severe (7-10) Dextrose/Sodium Chloride 1,000 mls @ 100 mls/hr 02/06/20 23:00 02/08/20 05:56 D5ns IV 100 mls/hr DIRECT KATLYN Administration Lorazepam 4 mg 02/06/20 22:58 Ativan IV Q15MIN PRN CIWA-Ar >25 Nicotine 7 mg 02/07/20 12:00 02/08/20 10:40 Habitrol TD 7 mg QDAY KATLYN Administration Ondansetron HCl 4 mg 02/06/20 22:58 Zofran IV Q8H PRN Nausea And Vomiting Oxycodone/Acetaminophen 1 tab 02/06/20 22:58 Percocet 5/325 PO Q6H PRN Pain, Moderate (4-6) Potassium Chloride 20 meq 02/08/20 13:00 K-Dur PO 02/08/20 13:01 ONCE ONE Sodium Chloride 10 ml 02/07/20 10:00 02/08/20 10:41 Sodium Chloride Flush Syringe 10 Ml IV 10 ml BID KATLYN Administration Sodium Chloride 10 ml 02/06/20 22:58 Sodium Chloride Flush Syringe 10 Ml IV PRN PRN LINE FLUSH
[2020-02-08] MEDS ORDERED: POTASSIUM CHLORIDE ER 20 MEQ TAB PO ONE (13:00)
[2020-02-08 14:11] LABS: Hepatitis B Surface Antigen Non-Reactive (Negative); Hepatitis C Virus Antibody Non-Reactive (NonReactive)
--- NOTE | 2020-02-08 14:16 | XRay Report ---
CHEST 1 VIEW INDICATION: Follow-up. Abnormal chest x-ray. COMPARISON: 2 days prior FINDINGS: Support devices: None. Heart: Normal. Lungs/Pleura: Predominantly reticular bilateral pulmonary opacities are again noted. Mild pleural thi ckening is again seen in the right hemithorax. IMPRESSION: 1. No significant change. Signer Name: Eduardo Coulter MD Signed: 02/08/2020 2:12 PM Workstation Name: [id number]
[2020-02-08 14:35] LABS: C-Reactive Protein 4.2 mg/dL (0.00-1.30)
[2020-02-08] MEDS: AZITHROMYCIN 250 MG TAB PO SCH (21:32)
[2020-02-08] MEDS: FAMOTIDINE 20 MG TAB PO SCH (21:32)
[2020-02-09] MEDS ORDERED: POTASSIUM CHLORIDE ER 20 MEQ TAB PO ONE (09:28)
--- NOTE | 2020-02-09 09:31 | Progress Note ---
Assessment and Plan /Possible COVID-19; nagative ID consulted, continue empiric antibiotics for now, will DC contact and droplet isolation as Cobin test is negative /Febrile illness; likely from atypical pneumonia versus underlying sarcoidosis Continue empiric antibiotics, antipyretics /Alcohol withdrawal symptoms; Fall precautions, CIWA protocol Thiamine folic acid /Anemia; sudden drop in H&H from 10.5-7.9,Rpt hb 8.0 No external signs of bleeding, Stool for occult blood, IV Protonix /Thrombocytopenia; secondary to chronic alcohol use Alcoholic liver disease, closely monitor /Hypokalemia; replace with KCl Magnesium normal range /Hyponatremia; mild improvement Closely monitor /Sirs; organ dysfunction leukocytosis, tachypnea and lactic acidosis /Lactic acidosis; probably secondary to alcohol related Sirs, IV fluids, follow cultures /Alcoholic liver disease; LFTs trending down Closely monitor. Continue normal saline agitation /Severe malnutrition/hypoalbuminemia[albumin 2.7]/BMI 18 Due to chronic alcohol use, nutrition supplements, thiamine folic acid, Nutrition consult --DVT prophylaxis; Lovenox --Full CODE STATUS 02/08; ID recommended CT chest, COVID test negative Closely monitor and adjust management as needed Plan of care reviewed with the patient and his nurse Brief history: 59-year-old male patient with significant history of COPD, GERD, tobacco and alcohol use was admitted through emergency room with tremulousness, possible alcohol withdrawal symptoms,Patient's hemoglobin dropped from 10.5-7.9, will repeat H&H more than 8. Requested stool for occult blood Today patient was febrile, critically ill looking, discussed with ID, high suspicion for COVID/PUI, placed isolation precautions Transfer to [facility] room, huitron PCR, inflammatory markers and ID consult requested. Hospitalist Physical General appearance: Present: mild distress, well-nourished, - EENT Eyes: Present: PERRL, EOM intact - Neck Neck: Present: supple, normal ROM - Respiratory Respiratory effort: normal Respiratory: bilateral: diminished, negative: rales, rhonchi, wheezing - Cardiovascular Rhythm: regular Heart Sounds: Present: S1 & S2 - Extremities Extremities: no ischemia, No edema - Abdominal General gastrointestinal: soft, non-tender, non-distended, normal bowel sounds - Integumentary Integumentary: Present: clear, warm - Psychiatric Psychiatric: appropriate mood/affect - Neurologic Neurologic: moves all extremities Subjective Date of service: 02/09/20 Interval history: Patient seen and examined. Medical records and medication list reviewed. No acute event overnight noted by the RN. Patient denies any chest pain or difficulty breathing. Patient is tolerating diet. Patient is afebrile this morning Discussed plan of care at bedside with patient. Objective - Constitutional Vitals: Vital Signs - 12hr 02/08/20 02/09/20 22:00 04:55 Temperature 97.3 F L Pulse Rate 81 Respiratory 18 18 Rate Blood Pressure 110/58 O2 Sat by Pulse 98 98 Oximetry - Labs CBC & Chem 7: 02/11/20 04:57 02/11/20 04:57 Labs: Abnormal lab results 02/08/20 02/08/20 02/08/20 Range/Units 13:00 13:00 13:00 D-Dimer 708.73 H (0-234) ng/mlDDU POC Glucose (70-105) Ferritin 1367.0 H (13.0-400.0) ng/mL Lactate Dehydrogenase 201 H (91-180) units/L C-Reactive Protein 4.20 H (0.00-1.30) mg/dL 02/08/20 02/08/20 Range/Units 17:22 21:30 D-Dimer (0-234) ng/mlDDU POC Glucose 128 H 116 H (70-105) Ferritin (13.0-400.0) ng/mL Lactate Dehydrogenase (91-180) units/L C-Reactive Protein (0.00-1.30) mg/dL HEART Score - HEART Score Troponin: Troponin T < 0.010 ng/mL (0.00-0.029) 02/06/20 12:35
[2020-02-09 10:22] LABS: BUN/Creatinine Ratio 7; Blood Urea Nitrogen 4 mg/dL (9-20); Calcium 8.2 mg/dL (8.4-10.2); Hemolysis Index 2
[2020-02-09] MEDS: NICOTINE 7 MG/24 HR PATCH TD SCH (11:11)
[2020-02-09] MEDS: FAMOTIDINE 20 MG TAB PO SCH ×2 (11:11→21:14)
--- NOTE | 2020-02-09 11:18 | Consultation ---
History of Present Illness - Reason for Consult Consult date: 02/09/20 Rule out COVID-19 Requesting physician: MARY JO ALDRICH - History of Present Illness 59 y/o male with history of pulmonary sarcoidosis, used to be on chronic prednisone, COPD, GERD, tobacco abuse, admitted on 02/06/2020 due to generalized weakness and dizziness. Patient reports that he had been drinking heavily alcohol and he thought he needed to have a detox. He felt about to passed out. He denies any cough, runny nose, headaches, fever, chills. However, he had noted increased shortness of breath in the last 2 months. 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 He denies any nausea, vomiting, abdominal pain, diarrhea. On arrival, 97.8, HR 99, RR 24, O2 sat 83%, BP 125/81. Initial WBC 6.9. Hemoglobin 10.5. Platelets 92. D-dimer 708. Lactate 2.3. Glucose 242. CRP 0.6. Ferritin 2067. LDH: 1. CRP 402. Urinalysis negative urine drug screen negative. Blood culture 02/06/2020 no growth today. Chest x-ray showed diffuse bilateral interstitial infiltrates. Review of Systems: positive in bold print General: fever, chills, malaise, dizziness Cutaneous: rash, pruritus Head: headaches or injury Eyes: changes in vision, eye pain, double vision Ears: ear pain, ear discharge, ringing or hearing loss Nose: nose bleeding, stuffiness Mouth & throat: bleeding gums, horseness, no dental problems, or swollen glands Neck: no pain, node enlargement/lumps, tyroid enlargement or tenderness Respiratory: SOB, MOISE Cardiovascular: chest pain, leg edema, cyanosis, MOISE, orthopnea Musculoskeletal: edema, deformities, pain Gastrointestinal: nausea, vomiting, hematemesis, diarrhea, constipation, melena, bright red blood in stools, fecal incontinence, jaundice Genitourinary/Reproductive: frequent urination, dysuria, hematuria, incontinence Neurogical: seizures, headaches, weakness, paresthesias, loss of speech or vision; memory loss, vertigo, tremors, numbness Psychiatric: stable mood; excessive anxiety, sadness or moodiness Medications and Allergies Allergies Allergy/AdvReac Type Severity Reaction Status Date / Time lactose AdvReac Unknown Verified 05/13/18 12:39 Home Medications Medication Instructions Recorded Confirmed Last Taken Type Budesonide/Formoterol Fumarate 1 puff PO DAILY #1 hfa.aer.ad 05/15/18 02/06/20 Unknown Rx [Symbicort 160-4.5 Mcg Inhaler] Cetirizine HCl [Cetirizine 10mg 10 mg PO QDAY 02/06/20 02/06/20 Unknown History chew] amLODIPine [Norvasc] 10 mg PO DAILY 02/06/20 02/06/20 Unknown History traMADoL [Ultram] 50 mg PO Q6HR PRN 02/06/20 02/06/20 Unknown History Active Meds: Active Medications Acetaminophen (Tylenol) 650 mg PO Q4H PRN PRN Reason: Pain MILD(1-3)/Fever >100.5/MILLER Last Admin: 02/08/20 11:16 Dose: 650 mg Documented by: Al Hydrox/Mg Hydrox/Simethicone (Alum-Mag Hydrox-Simeth [id number]/5ml) 30 ml PO Q6HR PRN PRN Reason: Indigestion Last Admin: 02/08/20 10:41 Dose: 30 ml Documented by: Azithromycin (Zithromax) 500 mg PO QHS [facility] Stop: 02/11/20 22:01 Last Admin: 02/08/20 21:32 Dose: 500 mg Documented by: Chlordiazepoxide HCl (Librium) 50 mg PO Q1H PRN PRN Reason: CIWA-Ar 8-15 Chlordiazepoxide HCl (Librium) 100 mg PO Q1H PRN PRN Reason: CIWA-Ar 16-25 Famotidine (Pepcid) 20 mg PO BID [facility] Last Admin: 02/09/20 11:11 Dose: 20 mg Documented by: Haloperidol Lactate (Haldol) 2 mg IM Q6H PRN PRN Reason: Agitation Hydromorphone HCl (Dilaudid) 0.5 mg IV Q3H PRN PRN Reason: Pain , Severe (7-10) Dextrose/Sodium Chloride (D5ns) 1,000 mls @ 100 mls/hr IV DIRECT [facility] Last Admin: 02/08/20 20:13 Dose: 100 mls/hr Documented by: Lorazepam (Ativan) 4 mg IV Q15MIN PRN PRN Reason: CIWA-Ar >25 Nicotine (Habitrol) 7 mg TD QDAY [facility] Last Admin: 02/09/20 11:11 Dose: 7 mg Documented by: Ondansetron HCl (Zofran) 4 mg IV Q8H PRN PRN Reason: Nausea And Vomiting Oxycodone/Acetaminophen (Percocet 5/325) 1 tab PO Q6H PRN PRN Reason: Pain, Moderate (4-6) Sodium Chloride (Sodium Chloride Flush Syringe 10 Ml) 10 ml IV BID [facility] Last Admin: 02/09/20 11:12 Dose: Not Given Documented by: Sodium Chloride (Sodium Chloride Flush Syringe 10 Ml) 10 ml IV PRN PRN PRN Reason: LINE FLUSH Physical Examination - Physical Exam Narrative exam: General appearance: Alert in NAD Eyes: anicteric sclerae, moist conjunctivae; no lid-lag; PERRLA HENT: Atraumatic; oropharynx clear Lungs: afshan crackles CV: RRR no murmur Abdomen: Soft, non-tender; no masses or hepatosplenomegaly Extremities: no edema, no cyanosis Skin: No rash. Psych: Appropriate affect, alert and oriented to person, place and time. Neuro: alert and oriented x 3. Moving all extermities - Constitutional Vitals: Vital Signs Temp Pulse Resp BP Pulse Ox 97.3 F L 81 18 110/58 98 02/09/20 04:55 02/09/20 04:55 02/09/20 04:55 02/09/20 04:55 02/09/20 04:55 Temperature -Last 24 Hours Temperature 97.3 F Temperature 98.9 F Temperature 98.8 F Results - Labs CBC & Chem 7: 02/08/20 04:52 02/09/20 09:43 Labs: Abnormal lab results 02/08/20 02/08/20 02/08/20 Range/Units 13:00 13:00 13:00 D-Dimer 708.73 H (0-234) ng/mlDDU Sodium (137-145) mmol/L BUN (9-20) mg/dL Creatinine (0.8-1.5) mg/dL Glucose (75-100) mg/dL POC Glucose (70-105) Calcium (8.4-10.2) mg/dL Ferritin 1367.0 H (13.0-400.0) ng/mL Lactate Dehydrogenase 201 H (91-180) units/L C-Reactive Protein 4.20 H (0.00-1.30) mg/dL 02/08/20 02/08/20 02/09/20 Range/Units 17:22 21:30 09:43 D-Dimer (0-234) ng/mlDDU Sodium 135 L (137-145) mmol/L BUN 4 L (9-20) mg/dL Creatinine 0.6 L (0.8-1.5) mg/dL Glucose 132 H (75-100) mg/dL POC Glucose 128 H 116 H (70-105) Calcium 8.2 L (8.4-10.2) mg/dL Ferritin (13.0-400.0) ng/mL Lactate Dehydrogenase (91-180) units/L C-Reactive Protein (0.00-1.30) mg/dL Assessment and Plan Cultures: Blood cultures 02/06/2020 no growth today Assessment: 59 y/o male with history of pulmonary sarcoidosis, used to be on chr onic prednisone, COPD, GERD, tobacco abuse, admitted on 02/06/2020 due to generalized weakness, dizziness for 3 days and progressive SOB for 2 months: #SIRS: Present on admission with tachycardia, tachypnea, hypoxia, noted later fever of 101 for 2 days; of unclear etiology, likely pulmonary sarcoidosis exacerbation versus bilateral pneumonia versus COVID-19 infection, less likely #Pulmonary sarcoidosis exacerbation versus bilateral pneumonia versus COVID-19 infection, less likely: Awaiting for COVID-[address] chest in 2018 shows bilateral reticulonodular infiltrates. #Alcohol abuse/tobacco abuse: Patient counseled #Chronic anemia and thrombocytopenia: Now worsening. Sepsis: present on admission with fever, tachycardia, hypotension, elevated lactate; source Recommendations: CT of the chest Procalcitonin Follow-up COVID-19 test Pulmonary consult Ceftriaxone 2 g IV once a day Continue azithromycin Will follow. Jie Goetz MD Infectious Diseases Supply Coordinator [facility] ([facility]) M [phone] O [phone]
[2020-02-09] MEDS ORDERED: cefTRIAXone/NS 2 GM/100 ML 2 GM/100 ML BAG IV SCH (12:00)
[2020-02-09] MEDS: cefTRIAXone/NS 2 GM/100 ML 2 GM/100 ML BAG IV SCH (17:45)
[2020-02-09] MEDS: D5W/0.9% NACL 1,000 ML IV SCH (21:12)
[2020-02-09] MEDS: AZITHROMYCIN 250 MG TAB PO SCH (21:14)
[2020-02-09] MEDS: ACETAMINOPHEN 325 MG TAB PO PRN (22:08)
[2020-02-10] MEDS: D5W/0.9% NACL 1,000 ML IV SCH (06:37)
--- NOTE | 2020-02-10 09:18 | Progress Note ---
Assessment and Plan Cultures: Blood cultures 02/06/2020 no growth today Assessment: 59 y/o male with history of pulmonary sarcoidosis, used to be on chronic prednisone, COPD, GERD, tobacco abuse, admitted on 02/06/2020 due to generalized weakness, dizziness for 3 days and progressive SOB for 2 months: #SIRS: remains with fever; of unclear etiology, likely pulmonary sarcoidosis exacerbation versus bilateral pneumonia versus COVID-19 infection, less likely #Pulmonary sarcoidosis exacerbation versus bilateral pneumonia: Awaiting for COVID-[address] chest in 2018 shows bilateral reticulonodular infiltrates. Procal 0.2. COVID test negative. #Alcohol abuse/tobacco abuse: Patient counseled #Chronic anemia and thrombocytopenia: worse than last year Recommendations: Consider steroids - patient is ok CT of the chest - pending Pulmonary consult - sarcoidosis exacerbation off steroids for years Continue Ceftriaxone 2 g IV once a day day 2 of 5 Continue azithromycin po day 3 of 5 D/W Dr Gibbs Will follow. Jie Goetz MD Infectious Diseases [employer] [facility] ([facility]) M [phone] O [phone] Subjective Date of service: 02/10/20 Principal diagnosis: fever Interval history: Patient feels SOB and still with fever Objective - Exam Narrative Exam: General appearance: Alert in NAD Eyes: anicteric sclerae, moist conjunctivae; no lid-lag; PERRLA HENT: Atraumatic; oropharynx clear Lungs: afshan crackles CV: RRR no murmur Abdomen: Soft, non-tender; no masses or hepatosplenomegaly Extremities: no edema, no cyanosis Skin: No rash. Psych: Appropriate affect, alert and oriented to person, place and time. Neuro: alert and oriented x 3. Moving all extermities - Constitutional Vitals: Vital Signs Temp Pulse Resp BP Pulse Ox 99.1 F 81 20 120/69 99 02/10/20 05:47 02/10/20 05:47 02/10/20 05:47 02/10/20 05:47 02/10/20 05:47 Temperature -Last 24 Hours Temperature 99.1 F Temperature 99.0 F Temperature 101.3 F Temperature 98.9 F - Labs CBC & Chem 7: 02/08/20 04:52 02/09/20 09:43 Labs: Abnormal lab results 02/09/20 02/09/2020 Range/Units 09:43 22:08 07:41 Sodium 135 L (137-145) mmol/L BUN 4 L (9-20) mg/dL Creatinine 0.6 L (0.8-1.5) mg/dL Glucose 132 H (75-100) mg/dL POC Glucose 132 H 108 H (70-105) Calcium 8.2 L (8.4-10.2) mg/dL
[2020-02-10] MEDS: FAMOTIDINE 20 MG TAB PO SCH ×2 (10:19→23:03)
[2020-02-10] MEDS: cefTRIAXone/NS 2 GM/100 ML 2 GM/100 ML BAG IV SCH (10:19)
[2020-02-10] MEDS ORDERED: methylPREDNISolone Sod Succinate 125 MG/2 ML INJ IV NR (10:20)
--- NOTE | 2020-02-10 13:34 | Consultation ---
History of Present Illness Consult date: 02/10/20 Reason for consult: dyspnea, COPD, other (Sarcoidosis.) History of present illness: 59-year-old male with history of COPD and GERD comes in for feeling weak and dizzy. He felt that he was going to pass out. But did not pass out. EMS was called. He declined to come to the hospital. He stopped drinking 5 days ago. He drinks about 324 ounce bottles of beer every day for the last many years. Has been tremulous and shaky since last 3 days. Also has persistent weakness and dizziness. No syncope. No chest pain. Wants help with alcohol abuse and dependence. No fever. No exposure to coronavirus. Patient complaining shortness of breath even with slight exertion. Patient denies cough. Patient has history of smoking 1/2 a pack for 40 years. Counselled him to stop smoking. Patient denies drug abuse. Patient has history of sarcoidosis. Diagnosed 2 years ago. Patient was on prednisone for a while. Not taking prednisone at this time. Patient used work as [employer]. Patient says he is disabled . Not working now. Patient . Children 1. Allergic to lactose. Patient says loosing weight. Apetite is not good. Patient presently on room air. O2 saturation 95%. Patients chest xray 02/08/20 reported Predominantly reticular bilateral pulmonary opacities. Right pleural thickening. Past History Past Medical History: COPD, GERD, sarcoidosis Social history: smoking, alcohol abuse Medications and Allergies Allergies Allergy/AdvReac Type Severity Reaction Status Date / Time lactose AdvReac Unknown Verified 05/13/18 12:39 Home Medications Medication Instructions Recorded Confirmed Last Taken Type Budesonide/Formoterol Fumarate 1 puff PO DAILY #1 hfa.aer.ad 05/15/18 02/06/20 Unknown Rx [Symbicort 160-4.5 Mcg Inhaler] Cetirizine HCl [Cetirizine 10mg 10 mg PO QDAY 02/06/20 02/06/20 Unknown History chew] amLODIPine [Norvasc] 10 mg PO DAILY 02/06/20 02/06/20 Unknown History traMADoL [Ultram] 50 mg PO Q6HR PRN 02/06/20 02/06/20 Unknown History Active Meds: Active Medications Acetaminophen (Tylenol) 650 mg PO Q4H PRN PRN Reason: Pain MILD(1-3)/Fever >100.5/MILLER Last Admin: 02/09/20 22:08 Dose: 650 mg Documented by: Al Hydrox/Mg Hydrox/Simethicone (Alum-Mag Hydrox-Simeth [id number]/5ml) 30 ml PO Q6HR PRN PRN Reason: Indigestion Last Admin: 02/08/20 10:41 Dose: 30 ml Documented by: Albuterol/Ipratropium (Duoneb *Not For Prn Use*) 1 ampul IH Q6HRT [facility] Azithromycin (Zithromax) 500 mg PO QHS [facility] Last Admin: 02/09/20 21:14 Dose: 500 mg Documented by: Chlordiazepoxide HCl (Librium) 50 mg PO Q1H PRN PRN Reason: CIWA-Ar 8-15 Chlordiazepoxide HCl (Librium) 100 mg PO Q1H PRN PRN Reason: CIWA-Ar 16-25 Famotidine (Pepcid) 20 mg PO BID [facility] Last Admin: 02/10/20 10:19 Dose: 20 mg Documented by: Haloperidol Lactate (Haldol) 2 mg IM Q6H PRN PRN Reason: Agitation Hydromorphone HCl (Dilaudid) 0.5 mg IV Q3H PRN PRN Reason: Pain , Severe (7-10) Ceftriaxone Sodium (Rocephin/Ns 2 Gm/100 Ml) 2 gm in 100 mls @ 200 mls/hr IV Q24HR [facility]; Protocol Last Infusion: 02/10/20 11:50 Dose: Infused Documented by: Lorazepam (Ativan) 4 mg IV Q15MIN PRN PRN Reason: CIWA-Ar >25 Methylprednisolone Sodium Succinate (Solu-Medrol) 125 mg IV ONCE NR Stop: 02/10/20 18:00 Last Admin: 02/10/20 11:56 Dose: 125 mg Documented by: Nicotine (Habitrol) 7 mg TD QDAY [facility] Last Admin: 02/09/20 11:11 Dose: 7 mg Documented by: Ondansetron HCl (Zofran) 4 mg IV Q8H PRN PRN Reason: Nausea And Vomiting Oxycodone/Acetaminophen (Percocet 5/325) 1 tab PO Q6H PRN PRN Reason: Pain, Moderate (4-6) Prednisone (Deltasone) 20 mg PO QDAY [facility] Sodium Chloride (Sodium Chloride Flush Syringe 10 Ml) 10 ml IV BID [facility] Last Admin: 02/10/20 11:53 Dose: 10 ml Documented by: Sodium Chloride (Sodium Chloride Flush Syringe 10 Ml) 10 ml IV PRN PRN PRN Reason: LINE FLUSH Review of Systems All systems: negative Physical Examination Vital signs: Vital Signs Pulse Resp Pulse Ox 99 H 34 H 83 L 02/06/20 11:58 02/06/20 11:58 02/06/20 11:58 General appearance: no acute distress, alert Eyes: non-icteric Neck: supple, no JVD Ascultation: Bilateral: rhonchi Cardiovascular: regular rate and rhythm Gastrointestinal: normoactive bowel sounds, soft, non-tender Integumentary: normal Extremities: no cyanosis, no edema Musculoskeletal: no deformities Gait: poor gait normal mental status, non-focal exam, pupils equal and round, CN II-XII normal mood appropriate, affect normal Results - Laboratory Findings CBC and BMP: 02/08/20 04:52 02/09/20 09:43 PT/INR, D-dimer PT 13.7 Sec. (12.2-14.9) 02/06/20 12:35 INR 1.07 (0.87-1.13) 02/06/20 12:35 D-Dimer 708.73 ng/mlDDU (0-234) H 02/08/20 13:00 Abnormal lab findings: Abnormal Labs 02/06/20 02/06/20 02/06/20 12:35 12:35 13:16 RBC 2.94 L Hgb 10.5 L Hct 32.4 L MCV 110 H MCH 36 H Plt Count 92 L Lymph % (Auto) Bertie % (Auto) 10.6 H Eos % (Auto) Lymph # D-Dimer Sodium 134 L Potassium 3.5 L Chloride 92.4 L Carbon Dioxide 15 L BUN 7 L Creatinine Glucose 164 H POC Glucose Lactic Acid 2.70 H* Calcium Ferritin Total Bilirubin 4.10 H Direct Bilirubin 1.8 H AST 103 H ALT 80 H Alkaline Phosphatase 412 H Ammonia Lactate Dehydrogenase C-Reactive Protein Total Protein Albumin 3.4 L 02/06/20 02/06/20 02/07/20 14:08 14:08 05:34 RBC 2.26 L Hgb 7.9 L Hct 23.8 L D MCV 106 H MCH 35 H Plt Count 98 L Lymph % (Auto) 12.0 L Bertie % (Auto) 12.7 H Eos % (Auto) 5.0 H Lymph # 0.5 L D-Dimer Sodium Potassium Chloride Carbon Dioxide BUN Creatinine Glucose POC Glucose Lactic Acid 2.50 H* Calcium Ferritin Total Bilirubin Direct Bilirubin AST ALT Alkaline Phosphatase Ammonia 67.0 H Lactate Dehydrogenase C-Reactive Protein Total Protein Albumin 02/07/20 02/07/20 02/07/20 05:34 08:42 08:42 RBC Hgb 8.0 L Hct 24.4 L MCV MCH Plt Count Lymph % (Auto) Bertie % (Auto) Eos % (Auto) Lymph # D-Dimer Sodium 136 L Potassium 3.1 L Chloride Carbon Dioxide BUN 5 L Creatinine 0.5 L Glucose 105 H POC Glucose Lactic Acid 2.30 H* Calcium 7.7 L Ferritin Total Bilirubin 2.40 H Direct Bilirubin AST 47 H ALT Alkaline Phosphatase 266 H Ammonia Lactate Dehydrogenase C-Reactive Protein Total Protein 6.2 L D Albumin 2.7 L 02/07/20 02/07/20 02/07/20 11:25 11:58 15:40 RBC Hgb Hct MCV MCH Plt Count Lymph % (Auto) Bertie % (Auto) Eos % (Auto) Lymph # D-Dimer Sodium Potassium Chloride Carbon Dioxide BUN Creatinine Glucose POC Glucose 242 H Lactic Acid 2.30 H* 2.30 H* Calcium Ferritin Total Bilirubin Direct Bilirubin AST ALT Alkaline Phosphatase Ammonia Lactate Dehydrogenase C-Reactive Protein Total Protein Albumin 02/07/20 02/07/20 02/08/20 16:13 21:23 00:15 RBC Hgb Hct MCV MCH Plt Count Lymph % (Auto) Bertie % (Auto) Eos % (Auto) Lymph # D-Dimer Sodium Potassium Chloride Carbon Dioxide BUN Creatinine Glucose POC Glucose 126 H 106 H Lactic Acid 2.30 H* Calcium Ferritin Total Bilirubin Direct Bilirubin AST ALT Alkaline Phosphatase Ammonia Lactate Dehydrogenase C-Reactive Protein Total Protein Albumin 02/08/20 02/08/20 02/08/20 04:52 04:52 13:00 RBC Hgb 7.8 L Hct 23.3 L MCV MCH Plt Count Lymph % (Auto) Bertie % (Auto) Eos % (Auto) Lymph # D-Dimer 708.73 H Sodium 136 L Potassium 3.5 L Chloride Carbon Dioxide BUN 3 L Creatinine 0.6 L Glucose POC Glucose Lactic Acid Calcium 7.9 L Ferritin Total Bilirubin Direct Bilirubin AST ALT Alkaline Phosphatase Ammonia Lactate Dehydrogenase C-Reactive Protein Total Protein Albumin 02/08/20 02/08/20 02/08/20 13:00 13:00 17:22 RBC Hgb Hct MCV MCH Plt Count Lymph % (Auto) Bertie % (Auto) Eos % (Auto) Lymph # D-Dimer Sodium Potassium Chloride Carbon Dioxide BUN Creatinine Glucose POC Glucose 128 H Lactic Acid Calcium Ferritin 1367.0 H Total Bilirubin Direct Bilirubin AST ALT Alkaline Phosphatase Ammonia Lactate Dehydrogenase 201 H C-Reactive Protein 4.20 H Total Protein Albumin 02/08/20 02/09/20 02/09/20 21:30 09:43 22:08 RBC Hgb Hct MCV MCH Plt Count Lymph % (Auto) Bertie % (Auto) Eos % (Auto) Lymph # D-Dimer Sodium 135 L Potassium Chloride Carbon Dioxide BUN 4 L Creatinine 0.6 L Glucose 132 H POC Glucose 116 H 132 H Lactic Acid Calcium 8.2 L Ferritin Total Bilirubin Direct Bilirubin AST ALT Alkaline Phosphatase Ammonia Lactate Dehydrogenase C-Reactive Protein Total Protein Albumin 02/10/20 07:41 RBC Hgb Hct MCV MCH Plt Count Lymph % (Auto) Bertie % (Auto) Eos % (Auto) Lymph # D-Dimer Sodium Potassium Chloride Carbon Dioxide BUN Creatinine Glucose POC Glucose 108 H Lactic Acid Calcium Ferritin Total Bilirubin Direct Bilirubin AST ALT Alkaline Phosphatase Ammonia Lactate Dehydrogenase C-Reactive Protein Total Protein Albumin - Diagnostic Findings Chest x-ray: report reviewed, image reviewed Additional studies: CHEST 1 VIEW 02/08/20 INDICATION: Follow-up. Abnormal chest x-ray. COMPARISON: 2 days prior FINDINGS: Support devices: None. Heart: Normal. Lungs/Pleura: Predominantly reticular bilateral pulmonary opacities are again noted. Mild pleural thickening is again seen in the right hemithorax. IMPRESSION: 1. No significant change. Signer Name: Eduardo Coulter MD Signed: 02/08/2020 2:12 PM Assessment and Plan 59-year-old male with history of COPD and GERD comes in for feeling weak and dizzy. He felt that he was going to pass out. But did not pass out. EMS was called. He declined to come to the hospital. He stopped drinking 5 days ago. He drinks about 324 ounce bottles of beer every day for the last many years. Has been tremulous and shaky since last 3 days. Also has persistent weakness and dizziness. No syncope. No chest pain. Wants help with alcohol abuse and dependence. No fever. No exposure to coronavirus. Patient complaining shortness of breath even with slight exertion. Patient denies cough. Patient has history of smoking 1/2 a pack for 40 years. Counselled him to stop smoking. Patient denies drug abuse. Patient has history of sarcoidosis. Diagnosed 2 years ago. Patient was on prednisone for a while. Not taking prednisone at this time. Patient used work as [employer]. Patient says he is disabled . Not working now. Patient . Children 1. Allergic to lactose. Patient says loosing weight. Apetite is not good. Patient presently on room air. O2 saturation 95%. Patients chest xray 02/08/20 reported Predominantly reticular bilateral pulmonary opacities. Right pleural thickening. - Patient Problems (1) Alcohol withdrawal Current Visit: Yes Status: Acute Qualifiers: Complication of substance-induced condition: with unspecified complication Qualified Code(s): F10.239 - Alcohol dependence with withdrawal, unspecified Plan to address problem: Management as per primary care and alcohol rehab. (2) Delirium tremens Current Visit: Yes Status: Acute Plan to address problem: Patient is on ativan and Haldol. (3) Acute hepatitis Current Visit: Yes Status: Acute Plan to address problem: Management as per primary care. (4) COPD (chronic obstructive pulmonary disease) Current Visit: Yes Status: Acute Plan to address problem: Patient with history of smoking likely has COPD Albuterol/atrovent aerosol treatments q 6 hours. Continue Prednisone. Continue famotidine. Continue Zithromax and ceftrioxone. Recommend DVT prophylaxis. PFTs as out patient. ABGs on room air. Continue Nicoderm patch. (5) Sarcoidosis Current Visit: Yes Status: Acute Plan to address problem: ALEENA level PPD and madie skin tests. (6) Elevated d-dimer Current Visit: Yes Status: Acute Plan to address problem: Obtaining venous doppler studies of legs.
--- NOTE | 2020-02-10 15:46 | Cat Scan Report ---
CT chest w con INDICATION: History sarcoidosis, worsening shortness of breath, fever TECHNIQUE: All CT scans at this location are performed using the following dose modulation technique: Automated exposure control. Helical slices were obtained through the chest following the administration of 100 cc of Omnipaque 300 COMPARISON: Chest radiograph dated 02/08/2020 FINDINGS: There are small bilateral pleural effusions. There is diffuse reticulonodular interstitial disease. T here are patchy areas that are more consolidated in the lower lobes. Largest nodular density is in th e left lung apex measuring approximately 5 mm (average). No adenopathy is seen in the mediastinum. Th ere are calcified lymph nodes in the mediastinum and both lelo. No acute abnormality is seen in the upper abdomen. IMPRESSION: There are small bilateral pleural effusions. 2. There is diffuse reticulonodular interstitial disease which would correlate with the patient's his tory of sarcoid. There is areas of patchy airspace opacity in both lung bases which could represent s uperimposed pneumonia including atypical infection. . Signer Name: Laron Reza MD Signed: 02/10/2020 3:41 PM Workstation Name: [id number]
[2020-02-10] MEDS: NICOTINE 7 MG/24 HR PATCH TD SCH (16:01)
[2020-02-10] MEDS: IPRATROPIUM/ALBUTEROL SULFATE 3 ML AMPUL.NEB IH SCH ×2 (16:05→20:04)
--- NOTE | 2020-02-10 16:35 | Progress Note ---
Assessment and Plan /Possible COVID-19; nagative ID consulted, continue empiric antibiotics for now, will DC contact and droplet isolation as Cobin test is negative /Febrile illness; likely from atypical pneumonia versus underlying sarcoidosis Continue empiric antibiotics, antipyretics Ordered for CT chest-pending /Alcohol withdrawal symptoms; Fall precautions, CIWA protocol Thiamine folic acid /Anemia; macrocytic sudden drop in H&H from 10.5-7.8, No external signs of bleeding, Stool for occult blood is negative, IV Protonix /Thrombocytopenia; secondary to chronic alcohol use Alcoholic liver disease, closely monitor /Hypokalemia; replace with KCl Magnesium normal range /Hyponatremia; mild improvement Closely monitor /Sirs; organ dysfunction leukocytosis, tachypnea and lactic acidosis /Lactic acidosis; probably secondary to alcohol related Sirs, IV fluids, follow cultures /Alcoholic liver disease; LFTs trending down Closely monitor. Continue normal saline agitation /Severe malnutrition/hypoalbuminemia[albumin 2.7]/BMI 18 Due to chronic alcohol use, nutrition supplements, thiamine folic acid, Nutrition consult --DVT prophylaxis; Lovenox --Full CODE STATUS 02/08; ID recommended CT chest, COVID test negative 02/09: spiked temp [address] chest showed possible sarcoidosis AND ATYPICAL PNA. possible d/c terrell if remains afebrile Brief history: 59-year-old male patient with significant history of COPD, GERD, tobacco and alcohol use was admitted through emergency room with tremulousness, possible alcohol withdrawal symptoms,Patient's hemoglobin dropped from 10.5-7.9, will repeat H&H more than 8. Requested stool for occult blood Today patient was febrile, critically ill looking, discussed with ID, high suspicion for COVID/PUI, placed isolation precautions Transfer to [facility] room, huitron PCR, inflammatory markers and ID consult requested. Hospitalist Physical General appearance: Present: mild distress, malnourished - EENT Eyes: Present: PERRL, EOM intact - Neck Neck: Present: supple, normal ROM - Respiratory Respiratory effort: normal Respiratory: bilateral: diminished, negative: rales, rhonchi, wheezing - Cardiovascular Rhythm: regular Heart Sounds: Present: S1 & S2 - Extremities Extremities: no ischemia, No edema - Abdominal General gastrointestinal: soft, non-tender, non-distended, normal bowel sounds - Integumentary Integumentary: Present: clear, warm - Psychiatric Psychiatric: appropriate mood/affect - Neurologic Neurologic: moves all extremities Subjective Date of service: 02/10/20 Principal diagnosis: fever Interval history: Patient seen and examined. Medical records and medication list reviewed. No acute event overnight noted by the RN. Patient denies any chest pain or difficulty breathing. Patient is tolerating diet. Patient spiked fever above [address] chest pending Discussed plan of care at bedside with patient. Objective - Constitutional Vitals: Vital Signs - 12hr 02/10/20 02/10/20 02/10/20 05:47 11:51 16:05 Temperature 99.1 F 99.6 F Pulse Rate 81 82 Pulse Rate [ 82 Anterior Bilateral Throughout] Respiratory 20 20 Rate Respiratory 20 Rate [Anterior Bilateral Throughout] Blood Pressure 120/69 118/65 O2 Sat by Pulse 99 95 Oximetry - Labs CBC & Chem 7: 02/11/20 04:57 02/11/20 04:57 Labs: Abnormal lab results 02/09/20 02/10/20 02/10/20 Range/Units 22:08 07:41 16:34 POC Glucose 132 H 108 H 204 H (70-105) HEART Score - HEART Score Troponin: Troponin T < 0.010 ng/mL (0.00-0.029) 02/06/20 12:35
[2020-02-10] MEDS: AZITHROMYCIN 250 MG TAB PO SCH (23:03)
[2020-02-11] MEDS: IPRATROPIUM/ALBUTEROL SULFATE 3 ML AMPUL.NEB IH SCH ×3 (02:14→17:10)
[2020-02-11 05:28] LABS: Hematocrit 23.4 % (35.5-45.6)
[2020-02-11 05:53] LABS: BUN/Creatinine Ratio 12; Blood Urea Nitrogen 7 mg/dL (9-20); Calcium 8.9 mg/dL (8.4-10.2); Hemolysis Index 0
[2020-02-11 06:33] VITALS: BP 131/74
[2020-02-11] MEDS ORDERED: POTASSIUM CHLORIDE ER 20 MEQ TAB PO NR ×2 (08:10→12:01)
[2020-02-11] MEDS ORDERED: ENOXAPARIN 40 MG/0.4 ML INJ SUB-Q SCH (10:00)
[2020-02-11] MEDS ORDERED: predniSONE 20 MG TAB PO SCH (10:00)
[2020-02-11] MEDS: NICOTINE 7 MG/24 HR PATCH TD SCH (10:12)
[2020-02-11] MEDS: cefTRIAXone/NS 2 GM/100 ML 2 GM/100 ML BAG IV SCH (10:13)
[2020-02-11] MEDS: FAMOTIDINE 20 MG TAB PO SCH (10:14)
--- NOTE | 2020-02-11 10:32 | Progress Note ---
Assessment and Plan 59 y/o male with history of pulmonary sarcoidosis, used to be on chronic prednisone, COPD, GERD, tobacco abuse, admitted on 02/06/2020 due to generalized weakness, dizziness for 3 days and progressive SOB for 2 months: -SIRS: fever resolved on steroids; of unclear etiology, likely pulmonary sarcoidosis exacerbation versus bilateral pneumonia -Pulmonary sarcoidosis exacerbation versus bilateral pneumonia: CT chest in 2018 shows bilateral reticulonodular infiltrates. -CT chest diffuse reticulonodular interstitial disease with patch infiltrates Alcohol abuse/tobacco abuse: Patient counseled Tobacco use disorder- counselled on cessation Chronic anemia and thrombocytopenia: worse than last year Complete antibiotics per ID recommendations Needs pulmonary outpatient follow up re optimization of therapy for Sarcoidosis Continue Symbicort on discharge Subjective Date of service: 02/11/20 Principal diagnosis: fever Interval history: Follow up: Fever; Sarcoidosis Seen and examined. Vitals, labs, medications, chart and imaging reviewed No adverse overnight events. States he is feeling better. States his diagnosis of Sarcoidosis was made in [place], many years ago and is currently on Symbicort. He is resting peacefully in bed on 2L NC with some IV fluids. No fevers, no nausea or vomiting. No abdominal pain Some baseline shortness of breath. Objective Vital Signs - 12hr 02/10/20 02/11/20 02/11/20 23:04 02:15 05:53 Temperature 99.1 F 98.2 F Pulse Rate 92 H 89 Pulse Rate [ 93 H Anterior Bilateral Throughout] Respiratory 18 18 Rate Respiratory 16 Rate [Anterior Bilateral Throughout] Blood Pressure 113/65 131/74 O2 Sat by Pulse 98 98 Oximetry 02/11/20 07:50 Temperature Pulse Rate Pulse Rate [ 88 Anterior Bilateral Throughout] Respiratory Rate Respiratory 18 Rate [Anterior Bilateral Throughout] Blood Pressure O2 Sat by Pulse Oximetry Constitutional: no acute distress, alert Eyes: non-icteric Neck: supple, no JVD Ascultation: Bilateral: rhonchi Cardiovascular: regular rate and rhythm Gastrointestinal: normoactive bowel sounds, soft, non-tender Integumentary: normal Extremities: no cyanosis, no edema Neurologic: normal mental status, non-focal exam, pupils equal and round, CN II- XII normal Psychiatric: mood appropriate, affect normal CBC and BMP: 02/11/20 04:57 02/11/20 04:57 ABG, PT/INR, D-dimer: PT/INR, D-dimer PT 13.7 Sec. (12.2-14.9) 02/06/20 12:35 INR 1.07 (0.87-1.13) 02/06/20 12:35 D-Dimer 708.73 ng/mlDDU (0-234) H 02/08/20 13:00 Abnormal lab findings: Abnormal Labs 02/06/20 02/06/20 02/06/20 12:35 12:35 13:16 RBC 2.94 L Hgb 10.5 L Hct 32.4 L MCV 110 H MCH 36 H Plt Count 92 L Lymph % (Auto) Bullock % (Auto) 10.6 H Eos % (Auto) Lymph # D-Dimer Sodium 134 L Potassium 3.5 L Chloride 92.4 L Carbon Dioxide 15 L BUN 7 L Creatinine Glucose 164 H POC Glucose Lactic Acid 2.70 H* Calcium Ferritin Total Bilirubin 4.10 H Direct Bilirubin 1.8 H AST 103 H ALT 80 H Alkaline Phosphatase 412 H Ammonia Lactate Dehydrogenase C-Reactive Protein Total Protein Albumin 3.4 L 02/06/20 02/06/20 02/07/20 14:08 14:08 05:34 RBC 2.26 L Hgb 7.9 L Hct 23.8 L D MCV 106 H MCH 35 H Plt Count 98 L Lymph % (Auto) 12.0 L Bullock % (Auto) 12.7 H Eos % (Auto) 5.0 H Lymph # 0.5 L D-Dimer Sodium Potassium Chloride Carbon Dioxide BUN Creatinine Glucose POC Glucose Lactic Acid 2.50 H* Calcium Ferritin Total Bilirubin Direct Bilirubin AST ALT Alkaline Phosphatase Ammonia 67.0 H Lactate Dehydrogenase C-Reactive Protein Total Protein Albumin 02/07/20 02/07/20 02/07/20 05:34 08:42 08:42 RBC Hgb 8.0 L Hct 24.4 L MCV MCH Plt Count Lymph % (Auto) Bullock % (Auto) Eos % (Auto) Lymph # D-Dimer Sodium 136 L Potassium 3.1 L Chloride Carbon Dioxide BUN 5 L Creatinine 0.5 L Glucose 105 H POC Glucose Lactic Acid 2.30 H* Calcium 7.7 L Ferritin Total Bilirubin 2.40 H Direct Bilirubin AST 47 H ALT Alkaline Phosphatase 266 H Ammonia Lactate Dehydrogenase C-Reactive Protein Total Protein 6.2 L D Albumin 2.7 L 02/07/20 02/07/20 02/07/20 11:25 11:58 15:40 RBC Hgb Hct MCV MCH Plt Count Lymph % (Auto) Bullock % (Auto) Eos % (Auto) Lymph # D-Dimer Sodium Potassium Chloride Carbon Dioxide BUN Creatinine Glucose POC Glucose 242 H Lactic Acid 2.30 H* 2.30 H* Calcium Ferritin Total Bilirubin Direct Bilirubin AST ALT Alkaline Phosphatase Ammonia Lactate Dehydrogenase C-Reactive Protein Total Protein Albumin 02/07/20 02/07/20 02/08/20 16:13 21:23 00:15 RBC Hgb Hct MCV MCH Plt Count Lymph % (Auto) Bullock % (Auto) Eos % (Auto) Lymph # D-Dimer Sodium Potassium Chloride Carbon Dioxide BUN Creatinine Glucose POC Glucose 126 H 106 H Lactic Acid 2.30 H* Calcium Ferritin Total Bilirubin Direct Bilirubin AST ALT Alkaline Phosphatase Ammonia Lactate Dehydrogenase C-Reactive Protein Total Protein Albumin 02/08/20 02/08/20 02/08/20 04:52 04:52 13:00 RBC Hgb 7.8 L Hct 23.3 L MCV MCH Plt Count Lymph % (Auto) Bullock % (Auto) Eos % (Auto) Lymph # D-Dimer 708.73 H Sodium 136 L Potassium 3.5 L Chloride Carbon Dioxide BUN 3 L Creatinine 0.6 L Glucose POC Glucose Lactic Acid Calcium 7.9 L Ferritin Total Bilirubin Direct Bilirubin AST ALT Alkaline Phosphatase Ammonia Lactate Dehydrogenase C-Reactive Protein Total Protein Albumin 02/08/20 02/08/20 02/08/20 13:00 13:00 17:22 RBC Hgb Hct MCV MCH Plt Count Lymph % (Auto) Bullock % (Auto) Eos % (Auto) Lymph # D-Dimer Sodium Potassium Chloride Carbon Dioxide BUN Creatinine Glucose POC Glucose 128 H Lactic Acid Calcium Ferritin 1367.0 H Total Bilirubin Direct Bilirubin AST ALT Alkaline Phosphatase Ammonia Lactate Dehydrogenase 201 H C-Reactive Protein 4.20 H Total Protein Albumin 02/08/20 02/09/20 02/09/20 21:30 09:43 22:08 RBC Hgb Hct MCV MCH Plt Count Lymph % (Auto) Bullock % (Auto) Eos % (Auto) Lymph # D-Dimer Sodium 135 L Potassium Chloride Carbon Dioxide BUN 4 L Creatinine 0.6 L Glucose 132 H POC Glucose 116 H 132 H Lactic Acid Calcium 8.2 L Ferritin Total Bilirubin Direct Bilirubin AST ALT Alkaline Phosphatase Ammonia Lactate Dehydrogenase C-Reactive Protein Total Protein Albumin 02/10/20 02/10/20 02/10/20 07:41 16:34 22:01 RBC Hgb Hct MCV MCH Plt Count Lymph % (Auto) Bullock % (Auto) Eos % (Auto) Lymph # D-Dimer Sodium Potassium Chloride Carbon Dioxide BUN Creatinine Glucose POC Glucose 108 H 204 H 257 H Lactic Acid Calcium Ferritin Total Bilirubin Direct Bilirubin AST ALT Alkaline Phosphatase Ammonia Lactate Dehydrogenase C-Reactive Protein Total Protein Albumin 02/11/20 02/11/20 02/11/20 04:57 04:57 07:24 RBC Hgb 8.0 L Hct 23.4 L MCV MCH Plt Count Lymph % (Auto) Bullock % (Auto) Eos % (Auto) Lymph # D-Dimer Sodium 134 L Potassium 3.4 L Chloride Carbon Dioxide 20 L BUN 7 L Creatinine 0.6 L Glucose POC Glucose 197 H Lactic Acid Calcium Ferritin Total Bilirubin Direct Bilirubin AST ALT Alkaline Phosphatase Ammonia Lactate Dehydrogenase C-Reactive Protein Total Protein Albumin Chest x-ray: image reviewed CT scan - chest: image reviewed
--- NOTE | 2020-02-11 11:49 | Progress Note ---
Assessment and Plan Cultures: Blood cultures 02/06/2020 no growth today Assessment: 59 y/o male with history of pulmonary sarcoidosis, used to be on chronic prednisone, COPD, GERD, tobacco abuse, admitted on 02/06/2020 due to generalized weakness, dizziness for 3 days and progressive SOB for 2 months: #SIRS: fever resolved on steroids; of unclear etiology, likely pulmonary sarcoidosis exacerbation versus bilateral pneumonia #Pulmonary sarcoidosis exacerbation versus bilateral pneumonia: Awaiting for COVID-[address] chest in 2018 shows bilateral reticulonodular infiltrates. Procal 0.2. COVID test negative. CT chest diffuse reticulonodular interstitial disease with patch infiltrates #Alcohol abuse/tobacco abuse: Patient counseled #Chronic anemia and thrombocytopenia: worse than last year Recommendations: continue steroids per pulmonary Continue Ceftriaxone 2 g IV once a day day 3 of 5 Continue azithromycin po day 4of 5 Anticipate to d/c on levaquin 750 mg po qday to complete 7 days till 02/15/2020 needs pulmonary f/u as outpatient Will follow. Jie Goetz MD Infectious Diseases [employer] [facility] M [phone] Subjective Date of service: 02/11/20 Principal diagnosis: fever Interval history: Patient feels better no fever Objective - Exam Narrative Exam: General appearance: Alert in NAD Eyes: anicteric sclerae, moist conjunctivae; no lid-lag; PERRLA HENT: Atraumatic; oropharynx clear Lungs: afshan crackles CV: RRR no murmur Abdomen: Soft, non-tender; no masses or hepatosplenomegaly Extremities: no edema, no cyanosis Skin: No rash. Psych: Appropriate affect, alert and oriented to person, place and time. Neuro: alert and oriented x 3. Moving all extermities - Constitutional Vitals: Vital Signs Temp Pulse Resp BP Pulse Ox 98.2 F 88 18 131/74 98 02/11/20 05:53 02/11/20 07:50 02/11/20 07:50 02/11/20 05:53 02/11/20 05:53 Temperature -Last 24 Hours Temperature 98.2 F Temperature 99.1 F Temperature 98.5 F Temperature 99.6 F - Labs CBC & Chem 7: 02/11/20 04:57 02/11/20 04:57 Labs: Abnormal lab results 02/10/20 02/10/20 02/11/20 Range/Units 16:34 22:01 04:57 Hgb 8.0 L (11.8-15.2) gm/dl Hct 23.4 L (35.5-45.6) % Sodium (137-145) mmol/L Potassium (3.6-5.0) mmol/L Carbon Dioxide (22-30) mmol/L BUN (9-20) mg/dL Creatinine (0.8-1.5) mg/dL POC Glucose 204 H 257 H (70-105) 02/11/20 02/11/20 Range/Units 04:57 07:24 Hgb (11.8-15.2) gm/dl Hct (35.5-45.6) % Sodium 134 L (137-145) mmol/L Potassium 3.4 L (3.6-5.0) mmol/L Carbon Dioxide 20 L (22-30) mmol/L BUN 7 L (9-20) mg/dL Creatinine 0.6 L (0.8-1.5) mg/dL POC Glucose 197 H (70-105)
--- NOTE | 2020-02-11 12:29 | Discharge Summary ---
Providers - Providers Date of Admission: 02/07/20 15:49 Date of discharge: 02/11/20 Attending physician: BRIDGET GRAJEDA 02/07/20 06:56 Consult to Mental Health [CONS] Routine Reason For Exam: EtOH dependence and outpatient treatment 02/07/20 08:16 Consult to Dietitian/Nutrition [CONS] Routine Physician Instructions: Reason For Exam: Reason for Consult: Malnutrition 02/08/20 12:51 Consult to Physician [CONS] Routine Comment: Consulting Provider: DIANE RENTERIA Physician Instructions: Reason For Exam: PUI/evaluate for COVID 19 02/10/20 10:22 Consult to Physician [CONS] Routine Comment: Consulting Provider: AMA SNYDER Physician Instructions: Reason For Exam: sarcoidosis Primary care physician: SYSTEMS SPEC Hospitalization Condition: Stable Hospital course: 59-year-old male patient with significant history of COPD, GERD, tobacco and alcohol use was admitted through emergency room with tremulousness, possible alcohol withdrawal symptoms. Patient was placed on CIWA protocol, LFTs CBC was monitored. Today and patient hemoglobin slightly dropped but his H&H remained stable and stool for occult blood was negative. Patient then noted to spike fever, ID consult requested, he was tested for COVID which was negative. Patient does have history of sarcoidosis, CTA chest showed diffuse reticular nuclear interstitial disease and patchy air space opacity likely from atypical pneumonia or underlying sarcoid. Pulmonology was consulted, patient was placed on low-dose steroid after giving Solu-Medrol 125 mg 1 time dose. ID also recommended to continue antibiotic to treat for atypical pneumonia. Patient was instructed to follow-up with steam table associate as outpatient. Patient remained afe brile for 24 hours before discharge, he was then discharged home in stable condition with outpatient follow-up. Radiological data: CTA chest: 1. There are small bilateral pleural effusions. 2. There is diffuse reticulonodular interstitial disease which would correlate with the patient's history of sarcoid. There is areas of patchy airspace opacity in both lung bases which could represent superimposed pneumonia including atypical infection. Discharge diagnosis and management /Suspected COVID-19; test was nagative ID consulted, continue empiric antibiotics for now, will DC contact and droplet isolation as Covid test is negative /Febrile illness; likely from atypical pneumonia versus underlying sarcoidosis - treat for underlying cause /Sarcoidosis, chronic -Added back on low-dose of steroid, pulmonology consulted and will do further follow-up as outpatient /Atypical pneumonia, complete total 1 week course of antibiotic per ID recommendation /Alcohol withdrawal symptoms; Fall precautions, status post CIWA protocol, thiamine, folic acid /Anemia; macrocytic H&H stable, likely from underlying chronic alcohol abuse No external signs of bleeding, Stool for occult blood is negative, /Thrombocytopenia; secondary to chronic alcohol use and alcoholic liver disease, closely monitored /Hypokalemia; replaced with KCl, Magnesium normal range /Hyponatremia; mild improvement /Sirs; presented with organ dysfunction, leukocytosis, tachypnea and lactic acidosis -Likely due to atypical pneumonia and underlying sarcoidosis /Lactic acidosis; probably secondary to alcohol related /Alcoholic liver disease; LFTs trended down /Severe malnutrition/hypoalbuminemia[albumin 2.7]/BMI 18 Due to chronic alcohol use, nutrition supplements, thiamine folic acid, Nutrition consulted --DVT prophylaxis; Lovenox --Full CODE STATUS Hospitalist Physical General appearance: Present: mild distress, malnourished - EENT Eyes: Present: PERRL, EOM intact - Neck Neck: Present: supple, normal ROM - Respiratory Respiratory effort: normal Respiratory: bilateral: diminished, negative: rales, rhonchi, wheezing - Cardiovascular Rhythm: regular Heart Sounds: Present: S1 & S2 - Extremities Extremities: no ischemia, No edema - Abdominal General gastrointestinal: soft, non-tender, non-distended, normal bowel sounds - Integumentary Integumentary: Present: clear, warm - Psychiatric Psychiatric: appropriate mood/affect - Neurologic Neurologic: moves all extremities Disposition: DC-01 TO HOME OR SELFCARE Time spent for discharge: 34 minutes Core Measure Documentation - Palliative Care Palliative Care/ Comfort Measures: Not Applicable - Core Measures Any of the following diagnoses?: none Exam - Constitutional Vitals: Temp Pulse Resp BP Pulse Ox 98.2 F 88 18 131/74 98 02/11/20 05:53 02/11/20 07:50 02/11/20 07:50 02/11/20 05:53 02/11/20 05:53 Plan Activity: advance as tolerated Weight Bearing Status: Weight Bear as Tolerated Diet: low fat, low salt Special Instructions: other (Continue nutrition supplements) Follow up with: JEFF MARTÍNEZ MD [Primary Care Provider] - 3-5 Days AMA SNYDER MD [Staff Physician] - 7 Days Prescriptions: predniSONE [Deltasone] 20 mg PO QDAY #7 tablet levoFLOXacin [Levaquin] 750 mg PO QDAY #5 tablet
--- NOTE | 2020-02-11 15:02 | Vascular Lab Report ---
DUPLEX DOPPLER LOWER EXTREMITY VEINS, BILATERAL INDICATION / CLINICAL INFORMATION: Elevated D dimer. TECHNIQUE: Duplex doppler imaging was performed through the veins of both lower extremities using venous michaelle marla and other maneuvers. COMPARISON: None available. FINDINGS: RIGHT COMMON FEMORAL VEIN: Negative. RIGHT FEMORAL VEIN: Negative. RIGHT POPLITEAL VEIN: Negative. RIGHT CALF VEINS: Negative. LEFT COMMON FEMORAL VEIN: Negative. LEFT FEMORAL VEIN: Negative. LEFT POPLITEAL VEIN: Negative. LEFT CALF VEINS: Negative. ADDITIONAL FINDINGS: None. IMPRESSION: 1. No sonographic evidence for DVT in either lower extremity. Signer Name: Vladimir Roldan MD Signed: 02/11/2020 2:57 PM Workstation Name: [employer]
== END 2020-02-11 14:00 | disposition home or self-care (01) | DRG 193 ==
LOC: ED 11:02 → 3A 14:53 → OBSVTOIN 02-07 15:49 → 3A 02-08 13:05
PROVIDERS: ADMIT Internal Medicine; ATTEND Internal Medicine
DX: J18.9 Pneumonia, unspecified organism (principal); E43 Unspecified severe protein-calorie malnutrition; F10.231 Alcohol dependence with withdrawal delirium; E87.2 Acidosis; E87.1 Hypo-osmolality and hyponatremia; J44.0 Chronic obstructive pulmonary disease with (acute) lower respiratory infection; Z68.1 Body mass index [BMI] 19.9 or less, adult; K70.10 Alcoholic hepatitis without ascites; D86.0 Sarcoidosis of lung; K21.9 Gastro-esophageal reflux disease without esophagitis; F17.200 Nicotine dependence, unspecified, uncomplicated; D69.6 Thrombocytopenia, unspecified; E87.6 Hypokalemia; K70.9 Alcoholic liver disease, unspecified; D63.8 Anemia in other chronic diseases classified elsewhere; Z96.612 Presence of left artificial shoulder joint; Z96.652 Presence of left artificial knee joint; Z03.818 Encounter for observation for suspected exposure to other biological agents ruled out; Z82.49 Family history of ischemic heart disease and other diseases of the circulatory system
CPT/HCPCS: 36415; 70450; 71045; 71260; 80048; 80053; 80074; 80076; 80307; 80320; 81001; 82010; 82140; 82164; 82270; 82550; 82553; 82728; 82962; 83615; 83735; 84145; 84484; 85014; 85018; 85025; 85379; 85610; 86140; 87040; 93005; 93970; 94640; 99406; G0378; C9113; G0480; J0456; J0696; J1650; J2060; J2930; J3411; J3480; J7030; J7042; J7050; J7512; Q9967; U0003-CS